=== PATIENT | female | born 1970 | race Caucasian/White ===

== ENCOUNTER 2020-01-19 10:28 | Day surgery (SDC) | payer OTHER, SELFPAY ==
[2020-01-19] VITALS (12 sets, daily range): BP systolic 137–148; BP diastolic 73–88; PULSE 74–91; RESP 16–17; TEMP 36.1–36.6; O2SAT 92–98; BMI 39.6
--- NOTE | 2020-01-19 10:39 | RAD_ITS ---
STUDY: X-RAY - ABDOMEN/PELVIS REASON FOR EXAM: Female, 49 years old. PRE OP RIGHT SIDE KIDNEY STONE TECHNIQUE: 2 AP views COMPARISON: None. FINDINGS: There is a 1.1 cm calcification projecting over the lower pole of the right kidney. There are also lucent centered calcifications within the right hemipelvis these are likely phleboliths, but a distal ureteral stone cannot be excluded. There is been a previous cholecystectomy There is a moderate amount of colonic fecal material. There is no demonstrated free abdominal air. The visualized liver, spleen and kidneys are grossly normal in size and morphology. Normal soft tissue structures. Normal visualized osseous structures. RAD/Abdomen Single View IMPRESSION: 1.1 cm calcification likely within the right kidney Possible stones in the distal right ureter though these are likely phleboliths within the pelvis No free air or acute abnormality Electronically Signed: Pramod Vegas MD at 11:06 EDT , Service support ,
[2020-01-19] MEDS: Lactated Ringers 1,000 ML 100 ML IV ×2 (11:18→14:35)
[2020-01-19 11:26] LABS: Bedside Glucose 262 mg/dL (70-110)
--- NOTE | 2020-01-19 13:29 | PCM.HP.STD ---
History of Present Illness Date of Admission: 01/19/20 Chief Complaint: Right ureteral calculi The patient is a 49 year old female who has a stone in the distal right ureter is failed to pass it on her own spontaneously we will plan to proceed with treatment of the stone with laser lithotripsy and stent placement Past Medical History Allergies morphine Adverse Reaction (Verified 01/19/20 10:38) PT UNSURE OF REACTION n/v Home Medications: Ambulatory Orders Medication Instructions Recorded Aspirin [Aspir 81] 81 mg PO DAILY 01/14/20 Atorvastatin Calcium [Lipitor] 40 mg PO DAILY 01/14/20 Cetirizine HCl [Zyrtec] 10 mg PO DAILY 01/14/20 Duloxetine HCl 60 mg PO DAILY 01/14/20 Gabapentin [Neurontin] 100 mg PO PRN PRN 01/14/20 Gabapentin [Neurontin] 400 mg PO BID 01/14/20 Glimepiride 4 mg PO DAILY 01/14/20 Hydrochlorothiazide [Hctz] 25 mg PO DAILY 01/14/20 Ibuprofen 200 mg PO PRN PRN 01/14/20 Losartan Potassium 100 mg PO DAILY 01/14/20 Metformin HCl [Metformin ER 1,000 mg PO BID 01/14/20 Osmotic] Omeprazole 20 mg PO DAILY 01/14/20 Surgical History: no surgical history Smoking Status: Never smoker Tobacco Use: Non-smoker Review of Systems Constitutional: Denies: Chills, Fever, Weight Change HEENT: Denies: Head Aches, Sinus Congestion, Sinus Drainage Cardiovascular: Denies: Chest Pain, Palpitations Respiratory: Denies: Cough, Shortness of breath at rest, Sputum production Gastrointestinal: Denies: Abdominal Pain, Nausea, Vomiting Genitourinary: Denies: Dysuria Musculoskeletal: Denies: Joint Pain, Joint Tenderness Skin: Denies: Rash, Wounds Neurological: Denies: Numbness, Tingling, Focal weakness Psychiatric: Denies: Anxiety, Depression, Homicidal Ideations, Suicidal Ideations Hematologic/ Lymphatic: Denies: Easy Bruising, Easy Bleeding VTE Information - Inpt Only VTE Present on Admission: No VTE Mechan Device Prophylaxis: SCD's - Physical Exam Vitals/I&O's: Vital Signs Temp Pulse Resp BP Pulse Ox 97.9 F 91 17 139/88 H 96 01/19/20 10:58 01/19/20 10:58 01/19/20 10:58 01/19/20 10:58 01/19/20 10:58 Oxygen Delivery Method Room Air Weight: 118.1 kg Body Mass Index (BMI) 39.6 General: Alert, Oriented x3, Cooperative HEENT: Atraumatic, PERRLA, EOMI, Normocephalic Neck: Supple, No JVD, Negative Carotid Bruits Lungs: Clear to auscultation, Normal air movement Cardiovascular: Regular rate, No murmurs Abdomen: Bowel Sounds Present, Soft, Non Tender Extremities: No edema, Capillary Refill Less than 3 Seconds Skin: No rashes, No breakdown Musculoskeletal: No Tenderness to Palpation of Joints or Extremities Neurological: Cranial nerves II-XII grossly intact Psych/Mental Status: Normal Affect, Appropriate Laboratory Results 01/19/20 11:00: POC Glucose 262 H Current Medications Lactated Ringer's () 1,000 mls @ 100 mls/hr IV .Q10H JACKY Last Admin: 01/19/20 11:18 Dose: 100 mls/hr Documented by: Assessment/Plan Plan to proceed with right ureteroscopy balloon dilation of the ureter
--- NOTE | 2020-01-19 13:34 | PCM.DC.URO ---
Discharge Diet: No Restrictions, Light diet - advance as tolerated Discharge Activity: Return to Normal Activity, May Not Drive - for 2 days. Additional Activity Instructions:: Please be aware that pain medications may cause nausea. You should typically eat light foods as you take your pain medication. Pain medication may cause constipation, if this is a problem for you, please discuss with your doctor. Allergies/Adverse Reactions: Allergies morphine Adverse Reaction (Verified 01/19/20 10:38) PT UNSURE OF REACTION n/v Medications to take at Discharge Aspirin [Aspir 81] 81 mg PO DAILY 01/14/20 Atorvastatin Calcium [Lipitor] 40 mg PO DAILY 01/14/20 Cetirizine HCl [Zyrtec] 10 mg PO DAILY 01/14/20 Duloxetine HCl 60 mg PO DAILY 01/14/20 Gabapentin [Neurontin] 100 mg PO PRN PRN 01/14/20 Gabapentin [Neurontin] 400 mg PO BID 01/14/20 Glimepiride 4 mg PO DAILY 01/14/20 Hydrochlorothiazide [Hctz] 25 mg PO DAILY 01/14/20 Ibuprofen 200 mg PO PRN PRN 01/14/20 Losartan Potassium 100 mg PO DAILY 01/14/20 Metformin HCl [Metformin ER Osmotic] 1,000 mg PO BID 01/14/20 Omeprazole 20 mg PO DAILY 01/14/20 Ciprofloxacin [Cipro] 500 mg PO BID #6 tab 01/19/20 Hydrocodone Bitart/Apap 5-325 [[place] 5MG-325MG] 1 tablet PO Q4H PRN PRN 5 Days #14 tablet 01/19/20 The following prescriptions were given: Ciprofloxacin [Cipro] 500 mg PO BID #6 tab Transmission Status: Pending to [facility] Hydrocodone Bitart/Apap 5-325 [[place] 5MG-325MG] 1 tablet PO Q4H PRN PRN 5 Days #14 tablet PRN Reason: Pain Transmission Status: Sent to [facility] Primary Care Physician: Coreen Sanabria MD [Primary Care Provider] - Test Results: Test results from this visit will be discussed in further detail at your follow-up appointment, if applicable. Please Follow Up With: Austen Crowley MD When: please call to make an appointment.
[2020-01-19] MEDS: Lubricating Jelly 60 GM Tube 30 GM TOPICAL (13:37)
[2020-01-19] MEDS: Cefazolin 2 GM in 0.9% Normal Saline 100 ML IV (14:00)
--- NOTE | 2020-01-19 14:27 | PCM.OPRPT ---
Report of Operation Date of Procedure: 01/19/20 Pre-Operative Diagnosis: Right renal internal calculi Post-Operative Diagnosis: Same Surgery/Procedure Performed:: Cystoscopy right retrograde pyelogram and interpretation of fluoroscopic images, right ureteroscopy laser lithotripsy of stone and right stent placement Description of Surgical Findings:: 49-year-old female with a stone in the distal right ureter plan to take her to surgery today for ureteroscopy laser lithotripsy and stent placement. Patient was taken back to the operating room after smooth induction of general anesthesia she was placed in dorsolithotomy position, went into the bladder with a 21 [place] rigid cystourethroscope identified the trigone the bladder the ureteral orifice, we performed a retrograde pyelogram on the right side contrast went up the ureter I did not see a stone along the course of the ureter. I then put a wire up the ureter and went up the ureter with a semirigid ureteroscope went as far as possible could not see a stone. In reviewing her imaging I knew she had a stone and perhaps it had migrated back up to the kidney so I decided to perform flexible ureteroscopy. I then went in with a flexible ureteroscope I cannulated the distal right ureteral orifice went all the way up to the kidney inspected the upper pole midpole and then found a stone in the mid lower pole calyx I move the stone into the upper pole calyx I then used a 270 ?m laser fiber and laser the stone a little tiny pieces once a stone was completely lasered then I backed the my way down the ureter put a wire through the ureteroscope and then over the wire advanced a stent left the stent in place. Drain the bladder. On retrograde pyelograms taking contrast going up to the kidney no stone was seen along the course of the ureter. Patient was then taken back to the PACU in good condition and I will see her next week to remove the stent. Type of Anesthesia:: General Drains: stent right side - Admit VTE Documentation VTE Present on Admission: No VTE Mechan Device Prophylaxis: SCD's
[2020-01-19] MEDS: Ketorolac 15 MG/ML Vial IV (14:35)
[2020-01-19] MEDS: Metoclopramide 10 MG/2 ML Vial IV (15:37)
== END 2020-01-19 17:03 | disposition home or self-care (01) ==
LOC: SDC 10:29 → AC 10:32
PROVIDERS: Anesthesiology; PCP Student in an Organized Health Care Education/Training Program; Referring Provider Urology; Visit Provider Urology
PROC: 0TJ98ZZ Inspection of Ureter, Via Natural or Artificial Opening Endoscopic (ICD-10-PCS; CPT 52352; principal; 2020-01-19 12:20)
DX: N20.0 Calculus of kidney (principal); K21.9 Gastro-esophageal reflux disease without esophagitis; E78.00 Pure hypercholesterolemia, unspecified; E11.9 Type 2 diabetes mellitus without complications; I10 Essential (primary) hypertension; Z11.59 Encounter for screening for other viral diseases; Z79.82 Long term (current) use of aspirin; Z79.84 Long term (current) use of oral hypoglycemic drugs; Z79.899 Other long term (current) drug therapy
CPT/HCPCS: 00918; 52356; 74018; 76000; 82962; 87635; G2023; J7120; C1769; C2617; J2405; U0003

== ENCOUNTER 2025-02-27 17:36 | Emergency (ER) | payer MEDICAID, SELFPAY ==
[2025-02-27 17:37] VITALS: BP 137/88; PULSE 113; RESP 16; TEMP 36.8; O2SAT 98; BMI 37.1
--- NOTE | 2025-02-27 18:12 | CT_ITS ---
PROCEDURE: ABDOMEN/PELVIS W IV CONT ONLY 02/27/2025 REASON FOR EXAM: ABDOMINAL PA, VOMITING, DIARRHEA TECHNIQUE: ABDOMEN/PELVIS W IV CONT ONLY Coronal and Sagittal reconstruction series were provided. CONTRAST: 100 mL of Isovue 370 One or more dose reduction techniques were used (e.g., Automated exposure control, adjustment of the mA and/or kV according to patient size, use of iterative reconstruction technique. RADIATION DOSE SUMMARY: DLP: 1341 mGycm COMPARISON: None FINDINGS: Limited sections of the lung bases demonstrate no focal pulmonary mass or consolidations. The liver, spleen, pancreas, and both adrenal glands demonstrate no acute findings. The gallbladder is surgically removed The stomach is unremarkable. The small bowel loops are not dilated. The appendix is not clearly identified, although there are no secondary signs of appendicitis. No colonic obstruction. There is no free air or significant free fluid. The kidneys are unremarkable. The urinary bladder is not distended. The pelvic structures are intact. There is no solid pelvic mass. No significant lymphadenopathy. The aorta and IVC demonstrate no acute findings. Minimal atherosclerosis of the abdominal vasculature. Visualized osseous structures demonstrate no acute abnormality. Small right inguinal fat containing hernia. CT/Abdomen/Pelvis W IV Cont ONLY IMPRESSION: No acute intra-abdominal process. Reading Location: [id number]
[2025-02-27 18:14] LABS: Mucous, Urine 0 SEEN /hpf (<or=2+)
--- NOTE | 2025-02-27 18:17 | EDS_ITS ---
<Statement entered by Juliano Adkins DO - 02/27/25 20:51> Patient was seen and examined with physician physician assistant psychiatry Leisa All components of the history and physical confirmed and agreed. History of present illness and physical exam: Patient is a 54-year-old female with past medical hypertension, diabetes, recurrent kidney stones who presents to the emergency department the chief complaint of abdominal pain and back pain she states that this started last night. States that around 2 AM she developed nausea vomiting pain and diarrhea. States that this happened about a week ago as well. She states that given the symptoms did not improve throughout the day she came here for further evaluation management. States that about 3 weeks ago she saw her primary care physician and was placed on a PPI and sucralfate. She states that she was taking Protonix but not the sucralfate because it did not seem to be doing anything. She states that she has had her gallbladder out her appendix and a partial hysterectomy with 3 C-sections. States that she has had a colonoscopy before that was normal. Review of systems: Agree with above Physical exam: Agree with above MDM Patient is a 54-year-old female who presented to the emergency department the chief complaint of abdominal pain. On the differential diagnosis includes but not limited to viral gastroenteritis, bowel obstruction, urolithiasis, UTI, pyelonephritis. Once the workup is obtained reviewed she will be reevaluated. Patient CBC was reviewed showed a leukocytosis of 14,000, hemoglobin 14.5, platelet count 336. Patient odium is 130, potassium normal 3.5, creatinine normal at 0.89. Patient AST and ALT were 20 and 19 respectively total bilirubin elevated 2.03. Patient lipase normal at 31, urinalysis reviewed showed no evidence of infection. Patient CT on pelvis with IV contrast reviewed showed no acute intra-abdominal processes. Patient EKG reviewed and showed sinus rhythm. Discussed results with the patient she would like to go home at this point in time. She was advised to return with worsening symptoms or other concerns. She will be given prescriptions for Zofran and Bentyl. All question concerns answered she was discharged home in stable condition. She is agreeable this plan. Final impression: Abdominal pain Nausea and vomiting Diarrhea Disposition: Patient will be discharged home in stable condition Supervising attending attestation: Juliano Adkins D.O. HPI History of Present Illness Chief Complaint: Nausea/Vomiting/Diarrhea Narrative Narrative: 54-year-old female with past medical history of HTN, DM2, recurrent kidney stones presents with right upper quadrant and right flank pain that started last night. Around 2 AM she developed nausea and vomiting, pain, and diarrhea. She vomited about 4 times and is having frequent diarrhea throughout the day. No melena or hematochezia. She denies fever, chills, or urinary symptoms. She had similar symptoms 3 weeks ago and saw her primary care doctor and was put on a PPI and Sucre fate. She has been taking the Protonix but not the sucralfate because it did not seem to be doing anything. She felt better for 3 weeks until last night. She has a history of cholecystectomy, appendectomy, partial hysterectomy, and x 3. She reports an unremarkable colonoscopy within the last 5 years. [facility] Home Medications ?Medication ?Instructions ?Recorded ?Last Taken ?Type aspirin 81 mg tablet,delayed 81 mg PO DAILY 01/14/20 0 01/09/20 History release atorvastatin 40 mg tablet 40 mg PO DAILY 01/14/20 Unkn own History cetirizine 10 mg tablet 10 mg PO DAILY allergies Unknown History duloxetine 60 mg capsule,delayed 60 mg PO DAILY Unknown History release hydrochlorothiazide 25 mg tablet 25 mg PO DAILY Unknown History ibuprofen 200 mg capsule 200 mg PO PRN PRN Pain Or Fe caleb 01/14/20 Unknown History losartan 100 mg tablet 100 mg PO DAILY bp 01/14/20 Unknown History metformin 1,000 mg tablet,extended 1,000 mg PO BID Unknown History release 24hr (osmotic) omeprazole 20 mg capsule,delayed 20 mg PO DAILY gerd 0 01/14/20 01/19/20 08:00 History release dulaglutide 1.5 mg/0.5 mL mg subcut 10/01/23 Unknown H istory subcutaneous pen injector (Trulicity) insulin glargine 100 unit/mL (3 unit subcut 10/01/23 U nknown History mL) subcutaneous pen (Lantus Solostar U-100 Insulin) insulin lispro 100 unit/mL subcut 10/01/23 Unknown His tory subcutaneous pen tizanidine 4 mg tablet mg PO Q12H PRN 10/01/23 Unkn own History tramadol 50 mg tablet 50 mg PO DAILY PRN pain 0301/18 Unknown History amlodipine 10 mg tablet 10 mg PO DAILY 02/27/25 Unkn own History dicyclomine 20 mg tablet 20 mg PO BID PRN abdominal p ain 02/27/25 Unknown Rx #14 tabs gabapentin 300 mg capsule 300 mg PO BID 02/27/25 Unkno wn History ondansetron 4 mg disintegrating 4 mg PO Q8H PRN PRN Na usea #10 tabs 02/27/25 Unknown Rx tablet Allergy/AdvReac Type Severity Reaction Status Date / Time morphine AdvReac PT UNSURE Verified 02/27/25 17:41 OF REACTION Family History (Updated 10/01/23 @ 13:36 by Marianela Rashid MA) Grandmother Heart disease Diabetes RA (rheumatoid arthritis) Mother Heart disease Diabetes CVA (cerebral vascular accident) Myocardial infarction Grandfather Heart disease Diabetes Surgical History (Updated 10/01/23 @ 13:34 by Marianela Rashid MA) History of partial hysterectomy Hx of cholecystectomy Hx of appendectomy Hx of section Social History (Updated 10/01/23 @ 13:35 by Marianela Rashid MA) household members: significant other Smoking Status: Never smoker alcohol intake: never ROS ROS ED ROS Narrative Constitutional: Negative for fever, chills, malaise. CVS: Negative for chest pain. Respiratory: Negative for shortness of breath, cough. GI: Positive for abdominal pain, nausea, vomiting, diarrhea. EXAM Physical Exam Narrative Exam Narrative: CONST: Patient sitting in no acute distress. EYES: Normal inspection. NECK: Normal inspection. RESP: No respiratory distress, CTAB. CVS: Regular rate and rhythm, no murmur, no gallop. ABD: Soft with epigastric tenderness, no guarding or rebound, nondistended SKIN: Color normal, no rash, warm, dry, intact. EXTREMITIES: Normal appearance, no pedal edema. NEURO: Alert and answering questions appropriately. PSYCH: Normal affect. Const Vital Signs: 02/27/25 17:37 02/27/25 18:40 02/27/25 20:24 Temperature 98.2 F 98.5 F 98.2 F Temperature Source Oral Oral Pulse Rate 113 H 93 68 Respiratory Rate 16 16 18 Blood Pressure 137/88 H 119/66 139/79 H Blood Pressure Mean 104 83 99 Pulse Ox 98 99 97 Oxygen Delivery Method Room Air Room Air MDM MDM MDM Narrative Medical decision making narrative: Differential includes but not limited to viral gastroenteritis, GERD, PUD, pancreatitis, diverticulitis 54-year-old female was evaluated for nausea, vomiting, diarrhea, epigastric and right upper quadrant pain that started last night. She had a similar episode 3 weeks ago. She appears well and nontoxic. She is tachycardic at 113 with otherwise normal vital signs. Normal cardiopulmonary exam. Abdomen soft with epigastric tenderness without peritoneal signs. Labs show WBC of 14.3, normal electrolytes and renal function, glucose 144 with normal CO2 and gap. Total bilirubin is slightly up at 2.03 and alk phos is 133 but the rest of her LFTs and lipase are normal. She status postcholecystectomy so I think this is incidental and she just be rechecked outpatient. UA is negative. CT shows no acute intra-abdominal process. She feels improvement after fluids, Toradol, and Zofran and heart rate has improved. Not sure what the etiology of her pain is. I prescribed Zofran and Bentyl as needed and recommend she follow-up with her primary care doctor. Return precautions discussed. She was discharged in stable condition. History & Record Review Discussion w/independent historian: Patient Additional record(s) reviewed:: Prior ED visit and Prior labs Lab Data Attestation: I reviewed the patient's lab results. Labs: Laboratory Results - last 24 hr 02/27/25 18:07 WBC 14.3 H RBC 5.07 Hgb 14.5 Hct 42.5 MCV 83.8 MCH 28.6 MCHC 34.1 RDW Std Deviation 43.3 RDW Coeff of Radha 14.3 Plt Count 336 MPV 9.7 Immature Gran % (Auto) 0.600 Neut % (Auto) 71.7 H Lymph % (Auto) 18.7 L [place] % (Auto) 4.9 Eos % (Auto) 3.6 Baso % (Auto) 0.5 Absolute Neuts (auto) 10.2 H Absolute Lymphs (auto) 2.66 Nucleated RBC % 0 Sodium 138 Potassium 3.5 Chloride 102 Carbon Dioxide 23.1 Anion Gap 13 BUN 18 Creatinine 0.89 Estim Creat Clear Calc 89.14 Est GFR (MDRD) Non-Af 76 BUN/Creatinine Ratio 20.7 H Glucose 144 H Calcium 9.2 Total Bilirubin 2.03 H AST 20 ALT 19 Alkaline Phosphatase 133 H Total Protein 7.2 Albumin 4.3 Globulin 2.9 Albumin/Globulin Ratio 1.5 Lipase 31 Urine Color Yellow Urine Clarity Clear Urine pH 6.0 Ur Specific [place] 1.015 Urine Protein 15 H Urine Glucose (UA) Normal Urine Ketones Negative Urine Occult Blood Negative Urine Nitrite Negative Urine Bilirubin Negative Urine Urobilinogen Normal Ur Leukocyte Esterase 25 H Urine RBC 0-5 SEEN Urine WBC 0-5 SEEN Ur Squamous Epith Cells 0-5 SEEN Urine Bacteria 0 SEEN Urine Mucus 0 SEEN Radiography Diagnostic Testing: Clinical Impression(s) from Imaging Studies Abdomen/Pelvis CT 02/27/25 18:12 IMPRESSION: No acute intra-abdominal process. Reading Location: [facility] Discharge Plan Triage Chief Complaint: Nausea/Vomiting/Diarrhea ED Midlevel Provider: Leisa Smalls ED Provider: Juliano Adkins Dx/Rx/DC Orders Clinical Impression: Abdominal pain, Nausea and vomiting, Diarrhea Instructions: Abdominal Pain Prescriptions: New ondansetron 4 mg tablet,disintegrating 4 mg PO Q8H PRN PRN (Reason: Nausea) Qty: 10 0RF dicyclomine 20 mg tablet 20 mg PO BID PRN (Reason: abdominal pain) Qty: 14 0RF No Action Trulicity 1.5 mg/0.5 mL pen injector subcut Patient Comments: INJECT CONTENTS OF ONE PEN SUBCUTANEOUSLY ONCE EVERY WEEK insulin glargine [Lantus Solostar U-100 Insulin] 100 unit/mL (3 mL) insulin pen subcut Patient Comments: INJECT SUBCUTANEOUSLY 32-34 UNITS DAILY insulin lispro 100 unit/mL insulin pen subcut Patient Comments: INJECT FIVE UNITS SUBCUTANEOUSLY 30 MINUTES BEFORE MEALs THREE TIMES DAILY plus sliding scale UP TO 25 units DAILY tramadol 50 mg tablet 50 mg PO DAILY PRN (Reason: pain) Patient Comments: TAKE 1 OR 2 TABLETS BY MOUTH EVERY 6 HOURS NEEDED FOR PAIN tizanidine 4 mg tablet PO Q12H PRN Patient Comments: TAKE ONE TABLET BY MOUTH EVERY TWELVE HOURS NEEDED FOR PAIN DO NOT FILL UNTIL 04/03/2023 atorvastatin 40 MG tablet 40 mg PO DAILY cetirizine 10 MG tablet 10 mg PO DAILY ibuprofen 200 MG capsule 200 mg PO PRN PRN (Reason: Pain Or Fever) aspirin 81 MG tablet,delayed release (DR/EC) 81 mg PO DAILY Patient Comments: stopped for surgery omeprazole 20 MG capsule,delayed release(DR/EC) 20 mg PO DAILY hydrochlorothiazide 25 MG tablet 25 mg PO DAILY losartan 100 MG tablet 100 mg PO DAILY metformin 1,000 MG tablet extended release 24hr 1,000 mg PO BID duloxetine 60 MG capsule,delayed release(DR/EC) 60 mg PO DAILY amlodipine 10 mg tablet 10 mg PO DAILY gabapentin 300 mg capsule 300 mg PO BID Primary Care Provider: Coreen Sanabria Referrals: Coreen Sanabria MD [Primary Care Provider] - Activity Restrictions/Additional Instructions: Overall your blood work and CT scan look normal and I am not sure what is causing your symptoms. I prescribed medication to take as needed for nausea and pain and you can also try [id number] Tylenol every 6 hours as needed. Follow-up with your primary care doctor. Print Language: Ecuadorean Disposition Disposition: Home, Self Care
[2025-02-27 18:19] LABS: Hematocrit 42.5 % (37-47); Hemoglobin 14.5 g/dL (12.0-15.0); Immature Granulocytes Count 0.080 X10^3/uL (0.0-0.0); Mean Corp Hgb Conc 34.1 g/dL (32-36); Mean Corpuscular Volume 83.8 fL (81-99); Mean Platelet Vol. 9.7 fl (6.2-12.0); NRBC Flagged by Analyzer 0 % (0-5); Platelet Count 336 K/mm3 (150-450); RBC Distribution Width CV 14.3 % (11.6-14.6); RBC Distribution Width SD 43.3 fl (35.1-43.9); Red Blood Count 5.07 M/mm3 (4.2-5.4); White Blood Count 14.3 K/mm3 (4.4-11.0)
--- OUTSIDE RECORDS SUMMARY | 2025-02-27 18:21 | XMS RPT_ITS | CCD ---
Author Organization [facility] Care Team Providers Care Fashion Journalist Name Role Phone LEXA ALBRIGHT Attending Unavailable KALISETTI, GEETA Primary Care Unavailable LEXA ALBRIGHT Referring Unavailable FALLS, JORGE CAMPOS Referring Unavailabl e KALISETTI, GEETA Primary Care Unavailable FALLS, JORGE CAMPOS Attending Unavailabl e FALLS, JORGE CAMPOS Referring Unavailabl e FALLS, JORGEFarhat CAMPOS Admitting Unavailabl e KALISETTI, GEETA Primary Care Unavailable FALLS, JORGE CAMPOS Attending Unavailabl e KALISETTI, GEETA Primary Care Unavailable FALLS, JORGEFarhat CAMPOS Referring Unavailabl e KALISETTI, GEETA Primary Care Unavailable FALLS, JORGE ANDRES Referring Unavailabl e FALLS, JORGE ANDRES Attending Unavailabl e KALISETTI, GEETA Primary Care Unavailable FALLS, JORGE ANDRES Referring Unavailabl e FALLS, JORGEFarhat CAMPOS Attending Unavailabl e KalGeeta arenas MD Primary Care Provider [phone] FALLS, JORGEFarhat CAMPOS Attending Unavailabl e KALISETTI, GEETA Primary Care Unavailable KALISETTI, GEETA Admitting Unavailable FALLS, JORGE ANDRES Attending Unavailabl e KALISETTI, GEETA Referring Unavailable KALISETTI, GEETA Primary Care Unavailable FALLS, JORGE ANDRES Attending Unavailabl e KALISETTI, GEETA Primary Care Unavailable FALLS, JORGE ANDRES Attending Unavailabl e KALISETTI, GEETA Primary Care Unavailable Kalisetti, Geeta Referring Unavailable Kalisetti, Geeta Primary Care Unavailable Curt Espana Attending Unavailable Geeta Sanabria MD Primary Care Provider GEETA SANABRIA MD Attending Unavailable GEETA SANABRIA MD Admitting Unavailable GEETA SANABRIA MD Primary Care Unavailable GEETA SANABRIA MD Consulting Unavailable PROVIDER, UNKNOWN Consulting Unavailable PROVIDER, UNKNOWN Consulting Unavailable GEETA SANABRIA MD Consulting Unavailable GEETA SANABRIA MD Attending Unavailable GEETA SANABRIA MD Primary Care Unavailable GEETA SANABRIA MD Admitting Unavailable PROVIDER, UNKNOWN Consulting Unavailable PROVIDER, UNKNOWN Consulting Unavailable GEETA SANABRIA MD Consulting Unavailable GEETA SANABRIA MD Attending Unavailable GEETA SANABRIA MD Primary Care Unavailable GEETA SANABRIA MD Admitting Unavailable PROVIDER, UNKNOWN Consulting Unavailable PROVIDER, UNKNOWN Consulting Unavailable GEETA SANABRIA MD Admitting Unavailable GEETA SANABRIA MD Primary Care Unavailable GEETA SANABRIA MD Consulting Unavailable GEETA SANABRIA MD Attending Unavailable PROVIDER, UNKNOWN Consulting Unavailable PROVIDER, UNKNOWN Consulting Unavailable SHAI ERICKSON Attending Unavailable SHAI ERICKSON Admitting Unavailable GEETA SANABRIA MD Consulting Unavailable SHAI ERICKSON Primary Care Unavailable PROVIDER, UNKNOWN Consulting Unavailable PROVIDER, UNKNOWN Consulting Unavailable HELEN SHAI Admitting Unavailable HELEN SHAI Primary Care Unavailable GEETA SANABRIA MD Consulting Unavailable SHAI ERICKSON Attending Unavailable PROVIDER, UNKNOWN Consulting Unavailable PROVIDER, UNKNOWN Consulting Unavailable HELEN, SHAI Admitting Unavailable GEETA SANABRIA MD Consulting Unavailable HELEN SHAI Primary Care Unavailable HELEN SHAI Attending Unavailable PROVIDER, UNKNOWN Consulting Unavailable PROVIDER, UNKNOWN Consulting Unavailable HELEN SHAI Primary Care Unavailable SHAI ERICKSON Attending Unavailable ERICKSON, SHAI Admitting Unavailable GEETA SANABRIA MD Consulting Unavailable PROVIDER, UNKNOWN Consulting Unavailable PROVIDER, UNKNOWN Consulting Unavailable GEETA SANABRIA MD Attending Unavailable GEETA SANABRIA MD Admitting Unavailable GEETA SANABRIA MD Primary Care Unavailable GEETA SANABRIA MD Consulting Unavailable PROVIDER, UNKNOWN Consulting Unavailable PROVIDER, UNKNOWN Consulting Unavailable GEETA SANABRIA MD Attending Unavailable GEETA SANABRIA MD Primary Care Unavailable GEETA SANABRIA MD Admitting Unavailable GEETA SANABRIA MD Consulting Unavailable PROVIDER, UNKNOWN Consulting Unavailable PROVIDER, UNKNOWN Consulting Unavailable MARKO BAUMANN Attending Unavailable GEETA SANABRIA Primary Care Unavailable MERNA, CHARLIE Referring Unavailable GEETA SANABRIA Primary Care Unavailable GEETA SANABRIA Primary Care Unavailable CHARLIE BAUMAN Referring Unavailable Allergies Allergy Classification Reported Allergen(s) Allergy Type Date of Onset Reaction(s) Facility (9 sources) Morphine; Translations: [MORPHINE] Drug Allergy 6 Nausea and vomiting, GI Upset [facility] Repository (1 source) Angiotensin Converting Enzyme (Richard) Inhibitors Drug allergy (disorder) [facility] Repository Medications Current Medications Medication Drug Class(es) Dates Sig (Normalized) Sig (Original) amLODIPine 10 mg oral tablet (4 sources) Dihydropyridine Calcium Channel Abbie Start: 06-17-20 14 take 1 tablet by mouth once daily amLODIPine (NORVASC) 10 mg tablet Take 1 tablet by mouth once daily. 0 06/17/2014 Active aspirin 81 mg delayed release oral tablet (4 sources) Platelet Aggregation Inhibitor, Nonsteroidal Anti-inflammatory Drug take 1 tablet by mouth once daily aspirin, enteric coated (ASPIRIN, ENTERIC COATED) 81 mg EC tablet Take 81 mg by mouth once daily. Active atorvastatin 40 mg oral tablet (4 sources) HMG-CoA Reductase Inhibitor Start: 08-15-19 24 take 1 tablet by mouth once daily atorvastatin (LIPITOR) 40 mg tablet Take 40 mg by mouth once daily. 08/15/2023 Active cetirizine hydrochloride 5 mg chewable tablet (4 sources) Histamine-1 Receptor Antagonist take 1 tablet by mouth once daily cetirizine HCl (ZYRTEC) 5 mg chewable tablet Take 5 mg by mouth once daily. Active cyclobenzaprine hydrochloride 10 mg oral tablet (4 sources) Muscle Relaxant Start: 06-07-20 24 take 1 tablet by mouth every twelve hours as needed cyclobenzaprine (FLEXERIL) 10 mg tablet Take 10 mg by mouth two times a day as needed. 06/07/2024 Active DULoxetine 60 mg delayed release oral capsule (4 sources) Serotonin and Norepinephrine Reuptake Inhibitor Start: 08-15-19 24 take 1 capsule by mouth once daily DULoxetine DR (CYMBALTA) 60 mg capsule Take 60 mg by mouth once daily. 08/15/2023 Active gabapentin 600 mg oral tablet (3 sources) Anti-epileptic Agent take 1 tablet by mouth three times daily gabapentin (NEURONTIN) 600 mg tablet Take 600 mg by mouth three times daily. Active hydroCHLOROthiazide 25 mg oral tablet (4 sources) Thiazide Diuretic Start: 08-15-19 24 take 1 tablet by mouth once daily hydroCHLOROthiazide 25 mg tablet Take 25 mg by mouth once daily. 08/15/2023 Active insulin glargine 100 unt/ml injectable solution (1 source) Insulin Analog insulin glargine (Lantus U-100 Insulin) 100 unit/mL injection Inject under the skin . Active insulin glargine,hum.rec.anlog (LANTUS SUBCUTANEOUS) (3 sources) inject 40 [IU] by subcutaneous injection once daily at bedtime insulin glargine,hum.rec.anlog (LANTUS SUBCUTANEOUS) Inject 40 Units subcutaneously daily at bedtime. Active insulin lispro 100 unt/ml injectable solution (3 sources) Insulin Analog inject 5 [IU] by subcutaneous injection three times daily before mealtime insulin lispro (HUMALOG) 100 unit/mL injection Inject 5 Units subcutaneously three times a day before meals. And sliding scale Active 3 ml liraglutide 6 mg/ml pen injector (3 sources) GLP-1 Receptor Agonist inject 1.2 mg by subcutaneous injection once daily liraglutide (VICTOZA) 0.6 mg/ 0.1 ml subcutaneous pen injector Inject 1.2 mg subcutaneously once daily. Active losartan potassium 100 mg oral tablet (4 sources) Angiotensin 2 Receptor Abbie Start: 08-15-19 24 take 1 tablet by mouth once daily losartan (COZAAR) 100 mg tablet Take 100 mg by mouth once daily. 08/15/2023 Active metFORMIN hydrochloride 1000 mg oral tablet (4 sources) Biguanide Start: 06-17-20 14 take 1 tablet by mouth once daily at breakfast metFORMIN (GLUCOPHAGE) 1,000 mg tablet Take 1 tablet by mouth daily with breakfast. 06/17/2014 Active Start: 06-17-2014 take 1 tablet by lola twice daily at mealtime metFORMIN (GLUCOPHAGE) 1000 MG tablet Take 1 (one) tablet (1,000 mg total) by mouth 2 (two) times a day with meals . 06/17/2014 Active omeprazole 20 mg delayed release oral capsule (1 source) Proton Pump Inhibitor take 1 capsule by mouth once daily omeprazole (PRILOSEC) 20 MG capsule Take 1 (one) capsule (20 mg total) by mouth daily . Active pantoprazole 40 mg delayed release oral tablet (3 sources) Proton Pump Inhibitor take 1 tablet by mouth once daily pantoprazole DR (PROTONIX) 40 mg tablet Take 40 mg by mouth once daily. Active sucralfate 1000 mg oral tablet (3 sources) Aluminum Complex take 1 tablet by mouth four times daily sucralfate (CARAFATE) 1 gram tablet Take 1 g by mouth four times daily. Active traMADol hydrochloride 50 mg oral tablet (4 sources) Opioid Agonist take 1 tablet by mouth every four hours as needed traMADol (ULTRAM) 50 mg tablet Take 50 mg by mouth every 4 hours as needed. Active 24 hr venlafaxine 37.5 mg extended release oral capsule (3 sources) Serotonin and Norepinephrine Reuptake Inhibitor Start: 06-17-20 take 1 capsule by mouth once daily venlafaxine XR (EFFEXOR XR) 37.5 mg 24 hr capsule Take 1 capsule by mouth once daily. 0 06/17/2014 Active Completed/Discontinued Medications Medication Drug Class(es) Dates Sig (Normalized) Sig (Original) acetaminophen 325 mg / HYDROcodone bitartrate 5 mg oral tablet (1 source) Opioid Agonist Start: 11-19-2023 End: 06-08-2024 take 1 tablet by mouth once daily as needed for pain HYDROcodone-acetami nophen (NORCO) 5-325 mg per tablet TAKE ONE TABLET BY MOUTH ONCE DAILY NEEDED FOR SEVERE PAIN 11/14/2023 11/19/2023 06/08/2024 Discontinued Problems Active Problems Problem Classification Problem Date Documented Da te Episodic/Chronic Deficiency and other anemia (3 sources) Other hemoglobinopathies; Translations: [Other hemoglobinopathies] Onset: 04-19-2024 Chronic Diabetes mellitus without complication (3 sources) Type 2 diabetes mellitus without complications; Translations: [Type 2 diabetes mellitus without complications] Onset: 08-10-2024 Chronic Other connective tissue disease (2 sources) Triggering of digit; Translations: [Trigger finger, right middle finger] 02-10-2025 Episodic Other connective tissue disease (2 sources) Fibromyalgia; Translations: [Fibromyalgia] 02-10-2025 Episodic Other connective tissue disease (1 source) Fibromyalgia; Translations: [Fibromyalgia] Onset: 02-10-2025 Episodic Other connective tissue disease (1 source) Trigger finger, right middle finger; Translations: [Trigger middle finger of right hand] Onset: 02-10-2025 Episodic Other non-traumatic joint disorders (5 sources) Pain in unspecified joint; Translations: [Pain in unspecified joint] Onset: 02-20-2024 Episodic Other non-traumatic joint disorders (5 sources) Multiple joint pain; Translations: [Pain in unspecified joint] 06-08-2024 Episodic Past or Other Problems Problem Classification Problem Date Documented Date Episodic/Chronic Calculus of urinary tract (3 sources) Recurrent kidney stone; Translations: [Calculus of kidney] Onset: 07-01-2016 07-01-2016 Episodic Genitourinary symptoms and ill-defined conditions (1 source) Unspecified symptoms and signs involving the genitourinary system; Translations: [Unspecified symptoms and signs involving the genitourinary system] Onset: 08-17-2024 Episodic Results Test Name Value Interpretation Reference Range Facility 3D MAMM BILAT SCREENon 02-15 3D MAMM BILAT SCREEN [place] [address] Patient: KAUSHIK RODRÍGUEZ Phone#: : 1970 Age: 54 Gender: F Pt. Type: Out Account: [id number] Location: [facility] Ordering: GEETA SANABRIA Exam Date: 02/15/2025/9:07 Family Phys: Charge Code: 460746 Physician: Citrus Order #: [id number] Dose#: PROCEDURE: BILATERAL SCREENING BREAST TOMOSYNTHESIS MAMMOGRAM WITH CAD COMPARISON: [facility], 3D BILAT SCREEN, 03/28/2021, 9:11. [facility], 3D BILAT SCREEN, 03/11/2023, 15:03. INDICATIONS: Screening. BREAST COMPOSITION: There are scattered areas of fibroglandular density FINDINGS: DIAGNOSTIC CATEGORY 1--NEGATIVE: RIGHT BREAST: No significant suspicious finding. No significant change has occurred. LEFT BREAST: No significant suspicious finding. No significant change has occurred. RECOMMENDATIONS: ROUTINE MAMMOGRAM AND CLINICAL EVALUATION IN 12 MONTHS. PLEASE NOTE: A NORMAL MAMMOGRAM DOES NOT EXCLUDE THE POSSIBILITY OF BREAST CANCER. A CLINICALLY SUSPICIOUS PALPABLE LUMP SHOULD BE BIOPSIED. THIS FACILITY UTILIZES A REMINDER SYSTEM TO ENSURE THAT ALL PATIENTS RECEIVE REMINDER LETTERS FOR APPOINTMENTS. THIS INCLUDES REMINDERS FOR ROUTINE MAMMOGRAMS, DIAGNOSITC MAMMOGRAMS, OR OTHER BREAST IMAGING INTERVENTIONS WHEN APPROPRIATE. THIS PATIENT WILL BE PLACED IN THE APPROPRIATE REMINDER SYSTEM. Dictated by: Lisseth Rodriguez MD on 02/15/2025 at 17:20 Approved by: Lisseth Rodriguez MD on 02/15/2025 at 17:31 Normal [facility] C-REACTIVE PROTEINon 02-10- 025 CRP [Mass/Vol] 0.8 mg/dL NINF - 0.9 mg/dL [facility] CNOVon 02-10-2025 CNOV Office Visit (RHWSTR ) BRUCE,SHAY ([id number]) 1970 F Date Time Provider Department 02/10/25 9:00 AM CHARLIE BAUMAN WSTR During your visit today, we recorded the following information about you: Pulse Blood pressure Weight Height 93/minute 131/84 108.7 kg 1.702 m Charlie Bauman PA-C 02/10/2025 11:05 AM Signed Rheumatology CONSULTATION Date of Service: 02/10/2025 Patient:Kaushik Rodríguez Medical Record: [id number] Primary Care Physician: Nai Worthington MD Last Rheumatology visit: None at [facility] Referring Provider: No referring provider defined for this encounter. Recording using Twinklr software for draft documentation of the visit was discussed with the patient/authorized uniforms sales representative; all questions welcomed and answered. Patient/authorized uniforms sales representative agreed to proceed History of Present Illness BRIEF RHEUM History: - Seen by Dr. Jorge Penaloza at [facility] in [place] 02/20/24 for polyarthralgia, history of psoriasis. - in 2023 was having multiple joint pain improving with activity and AM stiffness. Inflammatory arthritis is on the differential. - Testing included joint aspiration x 2 with non-inflammatory fluid - Lab testing 02/20/24 showed RF negative, CCP negative, DEJA negative, ROSLYN negative, Sed rate normal, CRP normal - MRI of R hand done 04/30/24 - No joint effusion, synovitis, tenosynovitis or osseous erosion. Normal marrow signal, no pathologic enhancement. - XR knee 01/2024 - mild osteoarthritis in medial and patellofemoral joint compartments - XR SI joint 02/20/24 - Normal - XR Hand 02/20/24 - no erosive arthritis, moderate bilateral ulnar negative variance. - XR foot 02/20/24 - mild pes planus, moderate plantar calcaneal spur, no perirticular erosions. - final impression by Dr. Penaloza 06/08/24: Polyarthralgia Workup overall unrevealing with negative RF/CCP, ROSLYN, DEJA, and ESR/CRP within normal limits. X-rays with some degenerative changes, but no evidence of damage from inflammatory arthritis. Synovial fluid analysis previously done with noninflammatory joint fluid (outside records 09/22/2023). MRI of the right hand with and without contrast with no joint effusion or synovitis, tenosynovitis or osseous erosions. Marrow signal within normal limits. No pathologic enhancement. Discussed with patient that at this time, I do not see a clear underlying inflammatory arthritis. Degenerative changes could be 1 source of joint pain and I do suspect that myofascial pain, possibly fibromyalgia may also be a contributor. She has been developing some patchy areas over her elbows in the winter. I have encouraged her to get this evaluated for psoriasis if this worsens. It is possible she could be in the early stages of development of inflammatory arthritis such as psoriatic arthritis, but discussed with her that given the lack of objective data at this point, I do not recommend treatment with DMARDs. I do recommend that she continue to follow-up with her PCP and with her pain medicine doctor and potentially explore other options for treatment of myofascial pain/fibromyalgia. Per patient: Joint symptoms progressively worsening over the past few years. - Hands, knees, shoulders, back, - Sees pain management for DDD, spinal stenosis, fibromyalgia - Bilateral hand pain, R>L, knees, back, shoulders, Medial aspect of knee. She wakes up with hand in a claw formation in R hand. Can't open jars any more due to her pian. Difficulty opening doorknob. Good days and bad days. She can do things but then pays for it for a few days. Joint pain flares with weather. No increased obvious swelling. Pain management - Tramadol 2 tablet BID. Also muscle relaxer at night. - Advil 600 mg as needed - PCP told her to minimize -does get benefit - Cymbalta started for depression years ago - gabapentin 300 mg BID - restarted by PCP hard to know if helping. Never been on Lyrica. - Pain management did cortisone injection in Left knee - first time not much longstanding improvement Admits she was flexible as child, but not recently. 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 She gets dry skin on her elbow and knees in the wintertime. Doesn't feel most consistent with PsO, no other skin rashes. Never saw dermatology for this. No history of dactylitis. R foot occasionally toes and ankles swollen No nail pitting Back pain in AM, sometimes wakes her up at night, worse with exertion. Not improved with exercise. No history of inflammatory eye disease. No IBD. RUQ pain - PCP started on Protonix and something else for pain Kaushik Ayala is a 54-year-old female with a history of degenerative disc disease, spinal stenosis, and DM, presenting for evaluation of chronic joint pain and stiffness. Kaushik reports a current pain level of 6 (more content not included)... Normal [facility] CRP [facility] 02-10-2025 CRP [Mass/Vol] 0.8 mg/dL Normal <0.9 [facility] Comment on above: Order Comment: Lakeshia kimble Type: BLOOD SPECIMEN Ordering Facility: [facility] Address: [address] [place] [address] Performed By: #### 1 988-5, 90119-6 #### [facility] CLIA [id number] [address] [place] [address] [place] Cyclic citrullinated peptide IgG Qnon 02-10-2025 CCP ANTIBODY IGG QUALITATIVE Negative Normal Negative [facility] Comment on above: Order Comment: Lakeshia kimble Type: BLOOD SPECIMEN Ordering Facility: [facility] Address: [address] [place] [address] Performed By: #### 3 3935-8 #### [facility] CLIA [id number] [address] [place] [address] [place] ESR Westergren method (Bld) [Velocity]on 02-10-2025 ESR (Bld) [Velocity] 7 mm/h Normal 0-20 [facility] Comment on above: Order Comment: Speci men Type: BLOOD SPECIMEN Ordering Facility: [facility] Address: [address] [place] [address] Performed By: #### 4 537-7 #### [facility] CLIA [id number] [address] [place] [address] [place] No Panel Informationon 02-10 Interpretation and review of laboratory results Normal [facility] RHEUMATOID FACTORon 02-11-20 25 Rheumatoid factor Qn NINF [facility] Rheumatoid fact SerPl-aCncon 02-10-2025 Rheumatoid factor Qn [IU]/mL Normal <16 [facility] Comment on above: Order Comment: Speci men Type: BLOOD SPECIMEN Ordering Facility: [facility] Address: [address] [place] [address] Performed By: #### 1 988-5, 61725-6 #### [facility] CLIA [id number] [address] [place] [address] [place] XR HAND 3V PA/LAT/OBL BILon 02-10-2025 XR HAND 3V PA/LAT/OBL MANSI * * *Final Report* * * DATE OF EXAM: Feb 10 2025 10:33AM [id number] [id number] - XR HAND 3V PA/LAT/OBL MANSI / PROCEDURE REASON: Polyarthralgia * * * * Physician Interpretation * * * * EXAMINATION / TECHNIQUE: XR HAND 3V PA/LAT/OBL MANSI HISTORY: PT STATES BILAT HAND PAIN > ON RIGHT Polyarthralgia COMPARISON: None. RESULT: No acute fracture or osseous malalignment is identified. The joint spaces are preserved. No osseous erosion. IMPRESSION: No acute bony abnormality. Health And Safety Tech: IRMA Transcribe Date/Time: Feb 16 2025 9:28P Dictated by : ORLANDO ARORA MD This examination was interpreted and the report reviewed and electronically signed by: ORLANDO ARORA MD on Feb 16 2025 9:28PM EST [id number] N Normal [facility] cCP IgG SerPl-aCncon 07-17-2 025 Cyclic citrullinated peptide IgG Qn <15 Normal <20 [facility] Comment on above: Order Comment: Speci men Type: BLOOD SPECIMEN Ordering Facility: [facility] Address: [address] [place] [address] Performed By: #### 3 3935-8 #### [facility] CLIA [id number] [address] [place] [address] [place] OPERATIVE PROCEDURESon 02-[address] [facility] OPERATIVE REPORT NAME ACCOUNT SEX AGE ADMIT DISCHARGE PT MED. RECORD# NUMBER DATE DATE TYPE BRUCE [id number] F 54 01/31/25 01/31/25 2 KAUSHIK Subramanian [id number] ROOM: DATE OF : 1970 DICTATING PHYSICIAN: Shai Erickson DATE OF PROCEDURE: January 31, 2025 SURGEON: Shai Erickson DO PARTS FABRICATOR: None. ANESTHESIA: Local. PREPROCEDURE DIAGNOSIS: Osteoarthritis left knee/M17.12. POSTPROCEDURE DIAGNOSIS: Osteoarthritis left knee/M17.12. PROCEDURE: Left knee injection for diagnostic and therapeutic purposes under palpatory guidance. COMPLICATIONS: None. IV FLUIDS: None. ESTIMATED BLOOD LOSS: None. INDICATIONS OF PROCEDURE: This is a 54-year-old female who is having difficulty ambulating secondary to the pain in her left knee. She has bilateral knee pain, but the left is certainly worse. She agrees to the risks and benefits of the procedure. DESCRIPTION OF OPERATION: This 54-year-old female was taken to the Pain Block room and was placed in the sitting position. Under sterile prep with Betadine and alcohol to the lateral inferior aspect of the left knee, a #25 gauge needle was placed into the left knee/joint space. After negative aspiration, Kenalog 40 mg with Marcaine 0.25% preservative-free 4 mL was then injected. The needle was then removed intact. Dictated By: Shai Erickson DO 01/31/25 12:07 JOB #: [id number] Transcribed By: am 01/31/25 15:29 Page 1 of 2 KAUSHIK RODRÍGUEZ Operative Report KAUSHIK RODRÍGUEZ : 1970 Electronically signed by: E-SIGN: SHAI ERICKSON 02/01/25 07:33 Page 2 of 2 KAUSHIK RODRÍGUEZ Operative Report Normal [facility] KNEE COMPLETE LT MIN 4 VIEWS on 01-31-2025 KNEE COMPLETE LT MIN [address] [address] Patient: KAUSHIK RODRÍGUEZ Phone#: : 1970 Age: 54 Gender: F Pt. Type: Out Account: [id number] Location: 062 Ordering: SHAI ERICKSON Exam Date: 01/31/2025/12:48 Family Phys: GEETA SANABRIA Charge Code: 403997 Physician: Citrus Order #: [id number] Dose#: PROCEDURE: X-RAY KNEE LT COMPLETE 4 VIEWS COMPARISON: [facility], XR, KNEE COMPLETE LT MIN 4 VIEWS, 09/22/2023, 11:28. INDICATIONS: Bilateral knee pain. FINDINGS: BONES: Medial compartment joint space loss. Minimal spurring at the undersurface of the patella SOFT TISSUES: Negative. No visible soft tissue swelling. EFFUSION: Small suprapatellar joint effusion OTHER: Negative. CONCLUSION: 1. Medial compartment joint space loss Dictated by: Lisseth Rodriguez MD on 01/31/2025 at 14:25 Approved by: Lisseth Rodriguez MD on 01/31/2025 at 14:27 Normal [facility] KNEE COMPLETE RT MIN 4 VIEWS on 01-31-2025 KNEE COMPLETE RT MIN [address] [address] Patient: KAUSHIK RODRÍGUEZ Phone#: : 1970 Age: 54 Gender: F Pt. Type: Out Account: [id number] Location: 062 Ordering: SHAI ERICKSON Exam Date: 01/31/2025/12:43 Family Phys: GEETA SANABRIA Charge Code: [id number] Physician: Citrus Order #: [id number] Dose#: PROCEDURE: X-RAY KNEE RT COMPLETE 4 VIEWS COMPARISON: [facility], XR, KNEE COMPLETE RT MIN 4 VIEWS, 04/08/2022, 19:23. INDICATIONS: Bilateral knee pain. FINDINGS: BONES: Normal. No significant arthropathy or acute abnormality. No fracture or dislocation. SOFT TISSUES: Negative. No visible soft tissue swelling. EFFUSION: None visible. OTHER: Negative. CONCLUSION: 1. Unremarkable right knee radiograph Dictated by: Lisseth Rodriguez MD on 01/31/2025 at 14:17 Approved by: Lisseth Rodriguez MD on 01/31/2025 at 14:25 Normal [facility] Office Visit Reporton 2024 Office Visit Report [facility] [address] [place] [address] OFFICE VISIT Date of Service: 11/22/24 MR#: [id number] Acct: [id number] Patient: KAUSHIK RODRÍGUEZ Rep #: [id number] : 1970 Provider: SRIDEVI Sierra Age/Sex: 54/F Location: [facility] [place] Status: Signed Intake Vital Signs 10/01/23 13:36 Height 5 ft 7 in Intake Visit 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 Allergies morphine Adverse Reaction (Verified 10/01/23 13:26) PT UNSURE OF REACTION Office Procedures [facility] Billing Sheet Testing Pre-Employment Drug Screen: Yes 11/29/24 0828 Date Curt LAUREANO Cosigner Signature: Date (if applicable) CC: Normal [facility] HEMOGLOBIN A1C (POM)on 11-08 Glucose [Mass/Vol] 162.8 mg/dL High 0.0 - 0.0 [facility] Comment on above: Result Comment: Do HEMOGLOBIN A1C REFERENCE RANGESBLDo Suggested Diagnosis HbA1c(%) HbA1C (mmol/mol Diabetic >/=6.5 >/=48 Prediabetes 5.7 - 6.4 39 - 47 Normal <5.7 <39 Performed By: #### 2 59742 #### [facility],[address] [place] [address] 99848 HbA1c (Bld) [Mass fraction] 7.3 % High 0.0 - 6.5 [facility] Comment on above: Performed By: #### 2 05999 #### [facility],[address] [place] [address] 86654 URINE CULTURE [CCL]on 2024 Bacteria identified Cx Nom (U) URCUL See Results Below See Below CULTURE, URINE MIXED MICROBIOTA 50,000-<100,000 CFU/ml Mixed microbiota No further workup. Mixed microbiota can be due to???urine???contamin ation with s llection technique or straight catheterization for???urine???collect ion. SOURCE: Urine (Nonspecific) [place] [address] Imer Rodríguez III, M.D. [id number] SEND TO IC NO Normal [facility] Comment on above: Performed By: #### 2 83994 ####[facility],[address] [place] [address] 73689 Bacteria Ur Culton Bacteria identified Cx Nom (U) ORGANISM ID: 1 50,000-<100,000 CFU/ml Mixed microbiota No further workup. Mixed microbiota can be due to???urine???contamin ation with skin bacteria at time of collection or presence of a long-term urinary catheter. If a new culture is needed, please consider re-education of the patient on proper midstream co llection technique or straight catheterization for???urine???collect ion. Normal [facility] Comment on above: Performed By: #### 6 30-4 #### [facility] CLIA [id number] [address] [place], [place] [address] [address] [place] CBC (NO DIFF)on 08-10-2024 CBC panel Auto (Bld) Normal [facility] Comment on above: Result Comment: CBC( WITHOUT DIFFERENTIAL) Performed By: #### 2 20820 ####[facility],[address] [place] [address] 18269 Erythrocyte distribution width (RBC) [Ratio] 13.8 % Normal 12.0 - 15.6 [facility] Comment on above: Performed By: #### 2 74860 ####[facility],[address] [place] [address] 23330 Hematocrit (Bld) [Volume fraction] 41.1 % Normal 34.0 - 46.0 [facility] Comment on above: Performed By: #### 2 58841 ####[facility],[address] [place] [address] 14622 Hemoglobin (Bld) [Mass/Vol] 14.2 g/dL Normal 12.0 - 16.0 [facility] Comment on above: Performed By: #### 2 25955 ####[facility],[address] [place] [address] 31707 MCH (RBC) [Entitic mass] 29 pg Normal 27 - 33 [facility] Comment on above: Performed By: #### 2 36558 ####[facility],[address] [place] [address] 51787 MCHC 35 X10 3 Normal 32 - 36 [facility] Comment on above: Performed By: #### 2 95380 ####[facility],[address] [place] [address] 41914 MCV (RBC) [Entitic vol] 85 fL Normal 80 - 99 [facility] Comment on above: Performed By: #### 2 83536 ####[facility],[address] [place] [address] 66153 PLATELET 307 x10EE3/UL Normal 150 - 450 [facility] Comment on above: Performed By: #### 2 41038 ####[facility],[address] [place] [address] 11963 Platelet mean volume (Bld) [Entitic vol] 7.7 fL Normal 6.6 - 10.5 [facility] Comment on above: Performed By: #### 2 22728 ####[facility],[address] [place] [address] 76035 RBC 4.84 x 10EE6/UL Normal 4.10 - 5.30 [facility] Comment on above: Performed By: #### 2 35640 ####[facility],[address] [place] [address] 04236 WBC 9.4 x 10EE3/UL Normal 4.5 - 10.8 [facility] Comment on above: Performed By: #### 2 70202 ####[facility],[address] [place] [address] 27627 CMP with eGFRon 08-10-2024 AGE 53 years Normal [facility] Comment on above: Performed By: #### 2 87011 #### [facility],[address] [place] [address] 09753 Albumin [Mass/Vol] 3.5 g/dL Normal 3.4 - 5.0 [facility] Comment on above: Performed By: #### 2 74111 #### [facility],[address] [place] [address] 95120 Albumin/Globulin [Mass ratio] 1.1 {ratio} Normal 0.9 - 1.6 [facility] Comment on above: Performed By: #### 2 01955 #### [facility],[address] [place] [address] 93526 ALK PHOS 112 U/L Normal 46 - 116 [facility] Comment on above: Performed By: #### 2 75099 #### [facility],[address] [place] [address] 06625 ALT [Catalytic activity/Vol] 30 U/L Normal 16 - 63 [facility] Comment on above: Performed By: #### 2 66514 #### [facility],[address] [place] [address] 18710 Anion gap [Moles/Vol] 13 mmol/L Normal 10 - 20 [facility] Comment on above: Performed By: #### 2 35544 #### [facility],[address] [place] [address] 16241 AST [Catalytic activity/Vol] 16 U/L Normal 13 - 39 [facility] Comment on above: Performed By: #### 2 45451 #### [facility],[address] [place] [address] 79120 B/C RATIO 14 ratio Normal 0 - 30 [facility] Comment on above: Performed By: #### 2 28381 #### [facility],[address] [place] [address] 12075 Bilirubin [Mass/Vol] 1.4 mg/dL High 0.2 - 1.0 [facility] Comment on above: Performed By: #### 2 81765 #### [facility],[address] [place] [address] 67793 Calcium [Mass/Vol] 9.0 mg/dL Normal 8.5 - 10.1 [facility] Comment on above: Performed By: #### 2 61188 #### [facility],[address] [place] [address] 30383 Chloride [Moles/Vol] 105 mmol/L Normal 98 - 107 [facility] Comment on above: Performed By: #### 2 17469 #### [facility],[address] [place] [address] 05146 CMP with eGFR Normal [facility] Comment on above: Result Comment: COMP REHENSIVE METABOLIC PANEL Performed By: #### 2 55930 #### [facility],[address] [place] [address] 98762 CO2 [Moles/Vol] 28.1 mmol/L Normal 21.0 - 32.0 [facility] Comment on above: Performed By: #### 2 17312 #### [facility],[address] [place] [address] 15570 Creatinine [Mass/Vol] 0.72 mg/dL Normal 0.55 - 1.02 [facility] Comment on above: Performed By: #### 2 12332 #### [facility],[address] [place] [address] 63530 GFR/1.73 sq M.predicted among non-blacks MDRD (S/P/Bld) [Vol rate/Area] mL/min/{1.73_m2} Normal 60 - 999 [facility] Comment on above: Performed By: #### 2 85997 #### [facility],[address] [place] [address] 77362 Result Comment: ACCO RDING TO THE NATIONAL KIDNEY DISEASE EDUCATION PROGRAM(NKDE), A NORMAL eGFR IS A VALUE GREATER THAN OR EQUAL TO 60 ML/MIN/1.73 SQ METERS. CHRONIC KIDNEY DISEASE: <60mL/MIN/1.73 SQ METERS KIDNEY FAILURE: <15mL/MIN/1.73 SQ METERS THIS TEST SHOULD ONLY BE USED FOR PATIENTS 18 YEARS OF AGE AND OLDER. Globulin (S) [Mass/Vol] 3.3 g/dL Normal 1.5 - 3.8 [facility] Comment on above: Performed By: #### 2 63195 #### [facility],[address] [place] [address] 19688 Glucose [Mass/Vol] 155 mg/dL High 74 - 106 [facility] Comment on above: Performed By: #### 2 03258 #### [facility],[address] [place] [address] 55506 Potassium [Moles/Vol] 4.2 mmol/L Normal 3.5 - 5.1 [facility] Comment on above: Performed By: #### 2 02058 #### [facility],[address] [place] [address] 13824 Protein [Mass/Vol] 6.8 g/dL Normal 6.4 - 8.2 [facility] Comment on above: Performed By: #### 2 37486 #### [facility],[address] [place] [address] 12818 Sodium [Moles/Vol] 142 mmol/L Normal 136 - 145 [facility] Comment on above: Performed By: #### 2 62074 #### [facility],[address] [place] [address] 75244 Urea nitrogen [Mass/Vol] 10 mg/dL Normal 7 - 18 [facility] Comment on above: Performed By: #### 2 46084 #### [facility],[address] [place] [address] 17406 HEMOGLOBIN A1C (POM)on 08-10 Glucose [Mass/Vol] 174.3 mg/dL High 0.0 - 0.0 [facility] Comment on above: Result Comment: BLDo HEMOGLOBIN A1C REFERENCE RANGESBLDo Suggested Diagnosis HbA1c(%) HbA1C (mmol/mol Diabetic >/=6.5 >/=48 Prediabetes 5.7 - 6.4 39 - 47 Normal <5.7 <39 Performed By: #### 2 02319 #### [facility],[address] [place] [address] 90593 HbA1c (Bld) [Mass fraction] 7.7 % High 0.0 - 6.5 [facility] Comment on above: Performed By: #### 2 15396 #### [facility],[address] [place] [address] 00624 LIPID PROFILEon 08-10-2024 Cholesterol [Mass/Vol] 108 mg/dL Normal 0 - 240 [facility] Comment on above: Performed By: #### 2 30949 #### [facility],[address] [place] [address] 35950 Cholesterol in HDL [Mass/Vol] 45 mg/dL Normal 40 - 60 [facility] Comment on above: Performed By: #### 2 68860 #### [facility],[address] [place] [address] 50367 Cholesterol in LDL [Mass/Vol] 44 mg/dL Normal 0 - 129 [facility] Comment on above: Performed By: #### 2 78973 #### [facility],[address] [place] [address] 30082 Cholesterol.total/Ch olesterol in HDL [Mass ratio] 2.4 {ratio} Normal 0.0 - 5.0 [facility] Comment on above: Performed By: #### 2 56907 #### [facility],[address] [place] [address] 14160 Lipid 1996 panel Normal [facility] Comment on above: Result Comment: LIPI D PROFILE Performed By: #### 2 73598 #### [facility],[address] [place] [address] 04837 Triglyceride [Mass/Vol] 97 mg/dL Normal 0 - 150 [facility] Comment on above: Performed By: #### 2 82200 #### [facility],[address] [place] [address] 18076 MR HAND RIGHT WITH AND WITHO UT CONTRASTon 04-27-2024 MR HAND RIGHT WITH AND WITHOUT CONTRAST EXAMINATION: MR HAND RIGHT WITH AND WITHOUT CONTRAST HISTORY: ORDERING SYSTEM PROVIDED HISTORY: Please evaluate for evidence of evidence of inflammatory arthritis, TECHNOLOGIST PROVIDED HISTORY: Illness/Other Reason for exam: Bilat hand pain x couple years, worse past 6 mo Encounter Type: Subsequent/Follow-up Additional signs and symptoms: . ORDERING SYSTEM PROVIDED DIAGNOSIS CODES: M25.50 Polyarthralgia COMPARISON: None. CONTRAST: GADOTERATE MEGLUMINE 0.5 MMOL/ML (376.9 MG/ML) INTRAVENOUS SOLUTION - 19 mL, FINDINGS: Pacemaker identification purposes only. IMPRESSION: Chest x-ray performed for pacemaker identification purposes. PD/trn Workstation ID: [id number] Addended: FriApr 30, 2024 9:44 AM by Gallito Ignacio MD ADDENDUM: Please ignore the earlier dictation. No joint effusion/synovitis, tenosynovitis or osseous erosions. Marrow signal is within normal limits. No pathologic enhancement. Musculature is maintained. No soft tissue mass. I compared with the hand x-rays performed on 02/20/2024. Workstation ID: [id number] Dictated by: GALLITO IGNACIO on FriApr 28, 2024 10:15:35 AM EDT Transcribed by: AMINA LAFLEUR on FriApr 28, 2024 10:17:27 AM EDT Finalized by: GALLITO IGNACIO on FriApr 28, 2024 10:33:59 AM EDT Normal [facility] Comment on above: Order Comment: Injur y/Trauma or Illness?:Illness/Other How long have you had these symptoms (acute/chronic)?:Chronic Reason for exam?:Pain History of cancer?:u Surgeries, chemotherapy, or radiation?:u Type of Exam?:Initial Additional signs and symptoms?:evaluate for inflammatory arthritis POC CREATININE - RALSon 10-0 Creatinine [Mass/Vol] 0.6 mg/dL Normal 0.4-1.1 [facility] Comment on above: Performed By: #### 4 8115 #### LAB [address] [place] [address] Orlando Cerda M.D. [id number] CBC (NO DIFF)on 04-19-2024 CBC panel Auto (Bld) Normal [facility] Comment on above: Result Comment: CBC( WITHOUT DIFFERENTIAL) Performed By: #### 2 44061 #### [facility],[address] [place], [place] [address] Erythrocyte distribution width (RBC) [Ratio] 13.4 % Normal 12.0 - 15.6 [facility] Comment on above: Performed By: #### 2 70000 #### [facility],[address] [place], [place] [address] Hematocrit (Bld) [Volume fraction] 45.3 % Normal 34.0 - 46.0 [facility] Comment on above: Performed By: #### 2 30521 #### [facility],[address] [place], [place] [address] Hemoglobin (Bld) [Mass/Vol] 15.4 g/dL Normal 12.0 - 16.0 [facility] Comment on above: Performed By: #### 2 45876 #### [facility],[address] [place] [address] 32571 MCH (RBC) [Entitic mass] 29 pg Normal 27 - 33 [facility] Comment on above: Performed By: #### 2 44820 #### [facility],[address] [place] [address] 49492 MCHC 34 X10 3 Normal 32 - 36 [facility] Comment on above: Performed By: #### 2 58758 #### [facility],[address] [place] [address] 26849 MCV (RBC) [Entitic vol] 85 fL Normal 80 - 99 [facility] Comment on above: Performed By: #### 2 28979 #### [facility],[address] [place] [address] 89165 PLATELET 265 x10EE3/UL Normal 150 - 450 [facility] Comment on above: Performed By: #### 2 94498 #### [facility],[address] [place] [address] 46529 Platelet mean volume (Bld) [Entitic vol] 8.4 fL Normal 6.6 - 10.5 [facility] Comment on above: Performed By: #### 2 56013 #### [facility],[address] [place] [address] 83719 RBC 5.32 x 10EE6/UL High 4.10 - 5.30 [facility] Comment on above: Performed By: #### 2 80084 #### [facility],[address] [place] [address] 67306 WBC 8.7 x 10EE3/UL Normal 4.5 - 10.8 [facility] Comment on above: Performed By: #### 2 17691 #### [facility],[address] [place] [address] 78620 HEMOGLOBIN A1C (POM)on 04-19 Glucose [Mass/Vol] 266.1 mg/dL High 0.0 - 0.0 [facility] Comment on above: Result Comment: BLDo HEMOGLOBIN A1C REFERENCE RANGESBLDo Suggested Diagnosis HbA1c(%) HbA1C (mmol/mol Diabetic >/=6.5 >/=48 Prediabetes 5.7 - 6.4 39 - 47 Normal <5.7 <39 Performed By: #### 2 28655 #### [facility],[address] [place] [address] 24859 HbA1c (Bld) [Mass fraction] 10.9 % High 0.0 - 6.5 [facility] Comment on above: Performed By: #### 2 13396 #### [facility],[address] [place] [address] 23120 ANAon 02-20-2024 ROSLYN TITER (TITER TYPE) < Normal <1:80 [facility] Comment on above: Order Comment: Injur y/Trauma or Illness?:Illness/Other How long have you had these symptoms (acute/chronic)?:Chronic Reason for exam?:Pain History of cancer?:u Surgeries, chemotherapy, or radiation?:u Type of Exam?:Initial Additional signs and symptoms?:evaluate for inflammatory arthritis Performed By: #### 4 5072 ####[facility] [address] [place] [address] Jose Dean M.D. [id number] CCP ANTIBODYon 02-20-2024 CCP AB < Normal <20.0 [facility] Comment on above: Result Comment: The following results were obtained with the [employer] Flash CCP3 chemiluminescent immunoassay. Values obtained with different manufacturers' assay methods may not be used interchangeably. Performed By: #### 4 7374 #### [facility] [address] [place] [address] Jose Dean M.D. [id number] CRP, INFLAMMATIONon 02-20-20 CRP [Mass/Vol] 3.5 mg/L Normal 0.0-10.0 [facility] Comment on above: Performed By: #### 4 5334 #### LAB [address] [place] [address] Orlando Cerda M.D. [id number] DEJA SCREEN (RO52,RO60,SSB,SM ,BUSINESS OBJECTS DEVELOPER,SCL-70,JO1)on 02-20-2024 DEJA SCREEN INTERPRETATION Negative Normal Negative [facility] Comment on above: Order Comment: The f ollowing results were obtained using [employer] Flash chemiluminescent immunoassay. Values obtained with different manufacturers' assay methods may not be used interchangeably. Result Comment: The DEJA Screen tests for Ro52, Ro60, SSB, SM, BUSINESS OBJECTS DEVELOPER, SCL-70, and JO1. Performed By: #### 4 5536 #### [facility] [address] [place] [address] Jose Dean M.D. [id number] RHEUMATOID FACTORon 02-20-20 24 RHEUMATOID FACTOR < Normal 0.0-14.0 [facility] Comment on above: Performed By: #### 4 6454 #### [facility] [address] [place] [address] Jose Dean M.D. [id number] SEDIMENTATION RATEon 024 SEDIMENTATION RATE, ERYTHROCYTE 4 mm/hr Normal 0-30 [facility] Comment on above: Performed By: #### 4 6477 #### [facility] [address] [id number] Orlando Cerda M.D. [id number] URIC ACIDon 02-20-2024 Urate [Mass/Vol] 3.1 mg/dL Normal 2.4-7.0 [facility] Comment on above: Performed By: #### 4 6629 #### [facility] [address] [place], [place] [address] Orlando Cerda M.D. [id number] XR FOOT LEFT 3+ VIEWS (STAND TIMMY)on 02-20-2024 XR FOOT LEFT 3+ VIEWS (STANDARD) EXAMINATION: XR FOOT LEFT 3+ VIEWS (STANDARD) HISTORY: ORDERING SYSTEM PROVIDED HISTORY: Please evalaute for inflammatory arthritis, TECHNOLOGIST PROVIDED HISTORY: Illness/Other Reason for exam: Left foot pain Cancer History: u Surgery, RadiationHistory: u Encounter Type: Initial Additional signs and symptoms: evaluate for inflammatory arthritis ORDERING SYSTEM PROVIDED DIAGNOSIS CODES: M25.50 Polyarthralgia COMPARISON: None FINDINGS: Three views of the left foot. No acute fracture. Joint alignment is anatomic. Joint spaces are preserved. There are no periarticular erosions. Soft tissues are within normal limits. There is a small plantar calcaneal spur. IMPRESSION: Small plantar calcaneal spur. Otherwise, normal left foot radiographs. There is no evidence for erosive arthrosis. Workstation ID: [id number] Dictated by: TANYA LAMBERT on FriFeb 24, 2024 10:48:54 AM EDT Transcribed by: TANYA LAMBERT on FriFeb 24, 2024 10:48:54 AM EDT Finalized by: TANYA LAMBERT on FriFeb 24, 2024 10:48:54 AM EDT [facility] Comment on above: Order Comment: Injur y/Trauma or Illness?:Illness/Other How long have you had these symptoms (acute/chronic)?:Chronic Reason for exam?:Left foot pain History of cancer?:u Surgeries, chemotherapy, or radiation?:u Type of Exam?:Initial Additional signs and symptoms?:evaluate for inflammatory arthritis XR FOOT RIGHT 3+ VIEWS (TIAGO CHÁVEZ)on 02-20-2024 XR FOOT RIGHT 3+ VIEWS (STANDARD) EXAMINATION: XR FOOT RIGHT 3+ VIEWS (STANDARD) HISTORY: ORDERING SYSTEM PROVIDED HISTORY: Please evalaute for inflammatory arthritis, TECHNOLOGIST PROVIDED HISTORY: Illness/Other Reason for exam: Right foot pain Cancer History: u Surgery, RadiationHistory: u Encounter Type: Initial Additional signs and symptoms: evaluate for inflammatory arthritis ORDERING SYSTEM PROVIDED DIAGNOSIS CODES: M25.50 Polyarthralgia COMPARISON: None FINDINGS: Three weight-bearing views of the right foot. No acute fracture. Joint alignment is anatomic. Joint spaces are preserved. There are no periarticular erosions. Soft tissues are within normal limits. There is a moderately sized plantar calcaneal spur. There is mild pes planus on the lateral view. IMPRESSION: 1. Mild pes planus. 2. Moderate plantar calcaneal spur. 3. There are no periarticular erosions. Workstation ID: [id number] Dictated by: TANYA LAMBERT on FriFeb 24, 2024 10:49:42 AM EDT Transcribed by: TANYA LAMBERT on FriFeb 24, 2024 10:49:42 AM EDT Finalized by: TANYA LAMBERT on FriFeb 24, 2024 10:49:42 AM EDT [facility] Comment on above: Order Comment: Injur y/Trauma or Illness?:Illness/Other How long have you had these symptoms (acute/chronic)?:Chronic Reason for exam?:Pain History of cancer?:u Surgeries, chemotherapy, or radiation?:u Type of Exam?:Initial Additional signs and symptoms?:evaluate for inflammatory arthritis XR HANDS BILATERAL BALL CATC HERS 2 VIEWSon 02-20-2024 XR HANDS BILATERAL BALL CATCHERS 2 VIEWS EXAMINATION: XR HANDS BILATERAL BALL CATCHERS 2 VIEWS HISTORY: ORDERING SYSTEM PROVIDED HISTORY: Please evaluate for inflammatory arthritis, TECHNOLOGIST PROVIDED HISTORY: Illness/Other Reason for exam: bilateral hand pain and stiffness Cancer History: u Surgery, RadiationHistory: u Encounter Type: Initial Additional signs and symptoms: evaluate for inflammatory arthritis ORDERING SYSTEM PROVIDED DIAGNOSIS CODES: M25.50 Polyarthralgia COMPARISON: None FINDINGS: PA and AP ball catcher's views of both hands. The bilateral wrists and hands maintain normal alignment. There is no fracture or dislocation. The joint spaces are well preserved. There are no periarticular erosions. The soft tissues appear normal. There is moderate bilateral ulnar negative variance. IMPRESSION: 1. There is no erosive arthrosis. 2. Moderate bilateral ulnar negative variance. Workstation ID: [id number] Dictated by: TANYA LAMBERT on FriFeb 24, 2024 11:00:16 AM EDT Transcribed by: TANYA LAMBERT on FriFeb 24, 2024 11:00:16 AM EDT Finalized by: TANYA LAMBERT on FriFeb 24, 2024 11:00:16 AM EDT [facility] Comment on above: Order Comment: Injur y/Trauma or Illness?:Illness/Other How long have you had these symptoms (acute/chronic)?:Chronic Reason for exam?:bilateral hand pain and stiffness History of cancer?:u Surgeries, chemotherapy, or radiation?:u Type of Exam?:Initial Additional signs and symptoms?:evaluate for inflammatory arthritis XR KNEES BILATERAL WB OA 3 V IEWSon 02-20-2024 XR KNEES BILATERAL WB OA 3 VIEWS EXAMINATION: XR KNEES BILATERAL WB OA 3 VIEWS HISTORY: ORDERING SYSTEM PROVIDED HISTORY: Polyarthralgia, TECHNOLOGIST PROVIDED HISTORY: Illness/Other Reason for exam: polyarthralgia, bilateral knee pain, left worse than right Cancer History: u Surgery, RadiationHistory: u Encounter Type: Initial Additional signs and symptoms: evaluate for inflammatory arthritis ORDERING SYSTEM PROVIDED DIAGNOSIS CODES: M25.50 Polyarthralgia COMPARISON: None FINDINGS: AP view of both knees. Oblique and lateral views of each individual knee. There is mild narrowing of the medial and patellofemoral joint compartment of both knees with mild marginal hypertrophic spurring. There is no fracture or dislocation. There is no knee joint effusion. IMPRESSION: Mild degenerative osteoarthritis in the medial joint compartment of each knee. Workstation ID: [id number] Dictated by: TANYA LAMBERT on FriFeb 24, 2024 11:02:37 AM EDT Transcribed by: TANYA LAMBERT on FriFeb 24, 2024 11:02:37 AM EDT Finalized by: TANYA LAMBERT on FriFeb 24, 2024 11:02:37 AM EDT [facility] Comment on above: Order Comment: Injur y/Trauma or Illness?:Illness/Other How long have you had these symptoms (acute/chronic)?:Chronic Reason for exam?:Pain History of cancer?:u Surgeries, chemotherapy, or radiation?:u Type of Exam?:Initial Additional signs and symptoms?:evaluate for inflammatory arthritis XR SI JOINTS 3+ VIEWSon 01-26 XR SI JOINTS 3+ VIEWS EXAMINATION: XR SI JOINTS 3+ VIEWS HISTORY: ORDERING SYSTEM PROVIDED HISTORY: Please evaluate for sacroillitis with wadsworth view, TECHNOLOGIST PROVIDED HISTORY: Illness/Other Reason for exam: Pain Cancer History: u Surgery, RadiationHistory: u Encounter Type: Initial Additional signs and symptoms: evaluate for inflammatory arthritis ORDERING SYSTEM PROVIDED DIAGNOSIS CODES: M25.50 Polyarthralgia COMPARISON: None FINDINGS: AP and both obliques views of the SI joints. The pelvic ring is intact. The SI joints appear symmetric and within normal limits. There are no erosions. There is no fracture. The hips are visualized in the hip joint spaces are normal. IMPRESSION: Normal SI joints. Workstation ID: [id number] Dictated by: TANYA LAMBERT on FriFeb 24, 2024 11:01:24 AM EDT Transcribed by: TANYA LAMBERT on FriFeb 24, 2024 11:01:24 AM EDT Finalized by: TANYA LAMBERT on FriFeb 24, 2024 11:01:24 AM EDT [facility] Comment on above: Order Comment: Injur y/Trauma or Illness?:Illness/Other How long have you had these symptoms (acute/chronic)?:Chronic Reason for exam?:Pain History of cancer?:u Surgeries, chemotherapy, or radiation?:u Type of Exam?:Initial Additional signs and symptoms?:evaluate for inflammatory arthritis Kel 09-07-2023 JERARDO Patient: KAUSHIK RODRÍGUEZ [id number] Location: [facility] Aount: [id number] : 1970 Age: 53 Sex F Lab NumbEr [id number] Requested by: LEXA MAGANA Admitdate: 09/07/23 Source: UR Collected: 09/07/23 15:59 Site: Received : 09/07/23 15:59 Culture, Urine FINAL 09/09/23 09:19 09/08/23 AEROBIC CULTURE RESULTS: #1: HEAVY GNB COLONY COUNT: >100,000 CFU/ml Organism 01 Escherichia coli ____ Organism E. coli ANTIBIOTICS CECELIA Interp ____ Amikacin <16 S Amoxicillin/K Clavulanate <8/4 S Amp/Sulbactam <8/4 S Ampicillin <8 S Cefazolin <2 S Cefepime <2 S Cefotaxime <2 S Cefotetan <16 S Ceftazidime <1 S Ceftriaxone <1 S Ciprofloxacin <1 S Ertapenem <0.5 S Gentamicin <4 S Levofloxacin <2 S Nitrofurantoin <32 S Piperacillin/Edgardo <16 S Tetracycline <4 S Tobramycin <4 S Trimeth/Sulfa <2/38 S ____ S=Sensitive I=Intermediate R=Resistant ____ Normal [facility] Comment on above: Performed By: #### M IC2 #### [address] [address] Library Manager Cytology Reporton 2022 Library Manager Cytology Report . 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 The rahda High-Risk HPV DNA Test is not intended for use as a screening device for Pap normal women under age 30 and is not intended to substitute for regular Pap screening. The radha High-Risk HPV DNA Test is designed to augment existing methods for the detection of cervical disease and should be used in conjunction with clinical information derived from other diagnostic and screening tests, physical examinations and full medical history in accordance with appropriate patient management procedures. NOTE: A negative result does not preclude the presence of HPV infection because results depend on adequate specimen collection, absence of inhibitors and sufficient DNA to be detected. As of: 04/24/23 11:49 EDT Pathology Reports Accession: Collected Date/Time: Received Date/Time: Pathologist: [id number] 04/18/2023 08:42 EDT 04/18/2023 18:00 EDT MD NOEL AGUDELO COMMENT: This Pap Test was successfully processed and evaluated with the assistance of the [employer] ThinPrep Test Imaging System. Electronically Signed by Pathology report verified by [facility] Screened by: NORMA Electronically signed by NOEL AGUDELO MD Sign-Out Date: 04/24/2023 16:47 Performing Lab: [facility], [address] [place] [address] Pathology Dept Disclaimer The Pap test is a screening test for cervical cancer. As evidenced by published data, it is subject to both inherent false negative and false positive results. Your patient's results should be interpreted in context with pertinent clinical history including gynecological examination. Normal [facility] [place] HPVon 04-23-2023 HPV Inter Normal See [facility] HPVN [facility] Comment on above: Order Comment: Order placed by AP_HPV_ORDER rule from [id number] Result Comment: High Risk HPV Typing: NEGATIVE HPV types 16, 18, 31, 33, 35, 39, 45, 51, 52, 56, 58, 59, 66 and 68 DNA were undetectable or below the pre-set threshold. The radha High-Risk HPV DNA Test is not intended for use as a screening device for Pap normal women under age 30 and is not intended to substitute for regular Pap screening. The radha High-Risk HPV DNA Test is designed to augment existing methods for the detection of cervical disease and should be used in conjunction with clinical information derived from other diagnostic and screening tests, physical examinations and full medical history in accordance with appropriate patient management procedures. NOTE: A negative result does not preclude the presence of HPV infection because results depend on adequate specimen collection, absence of inhibitors and sufficient DNA to be detected. See Interp HPVN Performed By: #### H PV #### [address] [address] HPV Source Cervix Normal [facility] Comment on above: Order Comment: Order placed by AP_HPV_ORDER rule from [id number] Performed By: #### H PV #### [address] [address] HGB A1Con 10-16-2021 Average glucose Estimated from glycated hemoglobin (Bld) [Mass/Vol] 283 mg/dL Normal [facility] Comment on above: Order Comment: Speci men Type: BLOOD SPECIMEN Ordering Facility: [facility] Address: [address] [place] [address] Result Comment: eAG: (Estimated average glucose) is a calculated value from HgbA1c and is uniforms sales representative of the average blood glucose level in the last 2-3 month period. Performed By: #### H BA1C #### [facility] CLIA [id number] [address] [place] [address] [place] HbA1c (Bld) [Mass fraction] 11.5 % High 4.3-5.6 [facility] Comment on above: Order Comment: Lakeshia kimble Type: BLOOD SPECIMEN Ordering Facility: [facility] Address: [address] [place] [address] Result Comment: Amer [place] Diabetes Association guidelines indicate that patients with HgbA1c in the range 5.7-6.4% are at increased risk for development of diabetes, and intervention by lifestyle modification may be beneficial. HgbA1c greater or equal to 6.5% is considered diagnostic of diabetes. Performed By: #### H BA1C #### [facility] CLIA [id number] [address] [place] [address] [place] RHEUMATOID FACTOR BLon 10-16 Rheumatoid factor Qn [IU]/mL Normal <16 [facility] Comment on above: Order Comment: [facility] Type: BLOOD SPECIMEN Ordering Facility: [facility] Address: [address] [place] [address] Performed By: #### R F #### [facility] CLIA [id number] [address] [place] [address] [place] DNA Antibody w/ Conf.on 12-27 DNA Antibody w/ Conf. <12 Normal <[address] [facility] Comment on above: Performed By: #### A NA1, DNA #### [facility] Immunology [address] [place] [phone] #### ENAID #### [facility] Routine Lab [address] [place] [phone] #### 125VTD #### [facility] Chemistry [address] [place], [place] [phone] #### ANAIFS #### [facility] Immuno Assay [address] [place] [phone] ROSLYN by IFAon 01-15-2021 ROSLYN Pattern ANANOT Normal [facility] Comment on above: Performed By: #### A NA1, DNA #### [facility] [address] [place] [phone] #### ENAID #### [facility] [address] [place] [phone] #### 125VTD #### [facility] Chemistry [address] [place] [phone] #### ANAIFS #### [facility]o Assay [address] [place] [phone] ROSLYN Titer Normal Negative [facility] Comment on above: Result Comment: Nega tive Normal range : negatie at <1:80 serum dilution. Performed By: #### A NA1, DNA #### [facility] [address] [place] [phone] #### ENAID #### [facility] [address] [place] [phone] #### 125VTD #### [facility] Chemistry [address] [place] [phone] #### ANAIFS #### [facility]o Assay [address] [place] [phone] Nuclear Ab IF (S) [Titer] Negative Normal Negative [facility] Comment on above: Performed By: #### A NA1, DNA #### [facility] [address] [place] [phone] #### ENAID #### [facility] [address] [place] [phone] #### 125VTD #### [facility] Chemistry [address] [place] [phone] #### ANAIFS #### [facility]o Assay [address] [place] [phone] DEJA Antibody Panelon 06-21-2 021 Centromere <0.2 Normal <1.[address] [facility] Comment on above: Performed By: #### A NA1, DNA #### [facility] [address] [place] [phone] #### ENAID #### [facility] [address] [place] [phone] #### 125VTD #### [facility] Chemistry [address] [place] [phone] #### ANAIFS #### [facility]o Assay [address] [place] [phone] Chromatin Antibody <0.2 Normal <1.0 [facility] Reference [facility] Comment on above: Performed By: #### A NA1, DNA #### [facility] [address] [place] [phone] #### ENAID #### [facility]ine [facility] [address] [place], [place] [address] #### 125VTD #### [facility] Chemistry [address] [place], [place] [address] #### ANAIFS #### [facility]o Assay [address] [place], [place] [address] DAVID 1 Antibody <0.2 Normal <1.[address] [facility] Comment on above: Performed By: #### A NA1, DNA #### [facility] [address] [place], [place] [address] #### ENAID #### [facility] [address] [place], [place] [address] #### 125VTD #### [facility] Chemistry [address] [place], [place] [address] #### ANAIFS #### [facility] Assay [address] [place], [place] [address] Ribosomal BUSINESS OBJECTS DEVELOPER <0.2 Normal <1.[address] [facility] Comment on above: Performed By: #### A NA1, DNA #### [facility] [address] [place], [place] [address] #### ENAID #### [facility] [address] [place], [place] [address] #### 125VTD #### [facility] Chemistry [address] [place], [place] [address] #### ANAIFS #### [facility] Assay [address] [place], [place] [address] BUSINESS OBJECTS DEVELOPER Antibody <0.2 Normal <1.[address] [facility] Comment on above: Performed By: #### A NA1, DNA #### [facility] [address] [place], [place] [address] #### ENAID #### [facility] [address] [place] [phone] #### 125VTD #### [facility] Chemistry [address] [place] [phone] #### ANAIFS #### [facility]o Assay [address] [place] [phone] Scleroderma IgG Ab <0.2 Normal <1.0 [facility] Comment on above: Performed By: #### A NA1, DNA #### [facility] [address] [place] [phone] #### ENAID #### [facility] [address] [place] [phone] #### 125VTD #### [facility] [address] #### ANAIFS #### [facility] Assay [address] Sm Antibody <0.2 Normal <1.[address] [facility] Comment on above: Performed By: #### A NA1, DNA #### [facility] [address] [place] [phone] #### ENAID #### [facility]ine [facility] [address] [place] [phone] #### 125VTD #### [facility] [address] [place] [phone] #### ANAIFS #### [facility] [address] [place] [phone] SSA Antibody <0.2 Normal <1.[address] [facility] Comment on above: Performed By: #### A NA1, DNA #### [facility] [address] [place], [place] [address] #### ENAID #### [facility]ine [facility] [address] [place], [place] [address] [phone] #### 125VTD #### [facility] [address] [place], [place] [address] [phone] #### ANAIFS #### [facility]o Assay [address] [place] [phone] SSB Antibody <0.2 Normal <1.[address] [facility] Comment on above: Performed By: #### A NA1, DNA #### [facility] [address] [place] [phone] #### ENAID #### [facility] [address] [place] [phone] #### 125VTD #### [facility] [address] [place] [phone] #### ANAIFS #### [facility]o Assay [address] [place] [phone] ROSLYN Panel 01-12-2021 ROSLYN by EIA 1.0 OD Ratio Normal [facility] Comment on above: Performed By: #### A NA1, DNA #### [facility] [address] [place] [phone] #### ENAID #### [facility] [address] [place] [phone] #### 125VTD #### [facility] [address] [place] [phone] #### ANAIFS #### [facility] Assay [address] [place] [phone] ROSLYN by EIA, Qual Positive Abnormal Negative [facility] Lab Comment on above: Performed By: #### A NA1, DNA #### [facility] [address] [place], [place] [address] #### ENAID #### [facility] [address] [place], [place] [address] [phone] #### 125VTD #### [facility] [address] [place] [phone] #### ANAIFS #### [facility]o Assay [address] [place], [place] [address] VitD, 1,25 Dihydroxyon 01-12 1,25 Dihydroxy VitD2 <4.0 Normal [facility] Reference Lab Comment on above: Performed By: #### A NA1, DNA #### [facility] [address] [place] [phone] #### ENAID #### [facility]ine [facility] [address] [place] [phone] #### 125VTD #### [facility] [address] [place] [phone] #### ANAIFS #### [facility]o Assay [address] [place], [place] [address] [phone] 1,25 Dihydroxy VitD3 54.7 pg/mL Normal [facility] Reference Lab Comment on above: Performed By: #### A NA1, DNA #### [facility] [address] [place], [place] [address] #### ENAID #### [facility]ine [facility] [address] [place] [phone] #### 125VTD #### [facility] [address] [place], [place] [address] [phone] #### ANAIFS #### [facility] [address] [place] [phone] Vit D,1,25 DiOH Normal 15.0-60.[address] [facility] Comment on above: Result Comment: 54.7 This test was developed and its performance characteristics determined by [facility]'s Rogerio Galvez [facility] [place] ( [facility]). It has not been cleared or approved by the FDA. [facility] is regulated under CLIA as qualified to perform high complexity testing. This test is used for clinical purposes. It should not be regarded as investigational or for research. Performed By: #### A NA1, DNA #### [facility] [address] [place] [address] #### ENAID #### [facility] Routine Lab [address] [place] [phone] #### 125VTD #### [facility] Chemistry [address] [place] [phone] #### ANAIFS #### [facility]o Assay [address] [place] [address] GC/Chlamydia Amplifon 2020 Chlamydia Amplif CLNEG Normal [facility] Reference [facility] GC Amplification NGNEG Normal [facility] GC/Chlam Amp Source Genital Normal [facility] Reference [facility] Hemoglobin A1con 11-19-2020 Glucose [Mass/Vol] 183 mg/dL Normal [facility] Reference Lab Comment on above: Performed By: #### H BA1C #### [facility] Routine Lab [address] [place] [address] HbA1c (Bld) [Mass fraction] 8.0 % High 4.3-5.[address] [facility] Comment on above: Performed By: #### H BA1C #### [facility] Routine Lab [address] [place] [address] Hemoglobin A1con 08-08-2020 Glucose [Mass/Vol] 246 mg/dL Normal [facility] Reference Lab Comment on above: Performed By: #### H BA1C #### [facility] Routine Lab [address] [place], [place] [phone] HbA1c (Bld) [Mass fraction] 10.2 % High 4.3-5.[address] [facility] Reference Lab Comment on above: Performed By: #### H BA1C #### [facility] Routine Lab [address] [place], [place] [phone] Hemoglobin A1con 04-12-2020 Glucose [Mass/Vol] 229 mg/dL Normal [facility] Reference Lab Comment on above: Performed By: #### H BA1C #### [facility] Routine Lab [address] [place], [place] [phone] HbA1c (Bld) [Mass fraction] 9.6 % High 4.3-5.[address] [facility] Comment on above: Performed By: #### H BA1C #### [facility] Routine Lab [address] [place], [place] [address] Vital Signs Date Time Vital Sign Value Performing Clinician Anton veliz 02-10-2025 09:24-0400 Body height 170.2 cm Charlie Merna PA-C Work Phone: [facility] 02-10-2025 09:24-0400 Body mass index (BMI) [Ratio] 37.53 kg/m2 Charlie Merna PA-C Work Phone: [facility] 02-10-2025 09:24-0400 Body weight 108.68 kg Charlie Merna PA-C Work Phone: [facility] 02-10-2025 09:24-0400 Diastolic blood pressure 84 mm[Hg] Charlie Mrena PA-C Work Phone: [facility] 02-10-2025 09:24-0400 Heart rate 93 /min Charlie Merna PA-C Work Phone: [facility] 02-10-2025 09:24-0400 SaO2% (BldA) [Mass fraction] 96 % Charlie Merna PA-C Work Phone: [facility] 02-10-2025 09:24-0400 Systolic blood pressure 131 mm[Hg] Charlie Bauman PA-C Work Phone: [facility] 06-08-2024 11:01-0500 Body mass index (BMI) [Ratio] 35.3 kg/m2 Jorge Falls DO Work Phone: [place] 06-08-2024 11:01-0500 Body weight 102.24 kg Jorge Falls DO Work Phone: [facility] 06-08-2024 11:01-0500 Diastolic blood pressure 87 mm[Hg] Jorge Falls DO Work Phone: [facility] 06-08-2024 11:01-0500 Heart rate 89 /min Jorge Falls DO Work Phone: [facility] 06-08-2024 11:01-0500 Systolic blood pressure 155 mm[Hg] Ojrge Falls DO Work Phone: [facility] Encounters Encounter Date Encounter Type Care Provider Facility Start: 02-16-2025 End: 02-18-2025 Follow-up encounter Charlie LAUREANO-C Work Phone: Rheumatology Start: 02-15-2025 End: 02-15-2025 ambulatory GEETA SANABRIA [facility] Start: 02-10-2025 End: 02-10-2025 ambulatory GEETA SANABRIA Facility:[facility] Start: 02-10-2025 End: 02-10-2025 Subsequent hospital visit by physician [facility] Lovely Alonzo Work Phone: Radiology Comment on above: Polyarthralgia [M25. 50] Start: 02-10-2025 End: 02-10-2025 ambulatory CHARLIE BAUMAN Facility:[facility] Start: 02-10-2025 End: 02-10-2025 Patient encounter procedure Charlie Guptaser PA-C Work Phone: Rheumatology Comment on above: Polyarthralgia (Prim kyaw Dx); Fibromyalgia; Trigger middle finger of right hand Start: 01-31-2025 End: 01-31-2025 ambulatory SHAI ERICKSON [facility] Start: 01-10-2025 [facility] Start: 11-22-2024 End: 11-22-2024 ambulatory Geeta Sanabria Facility:[facility] [place] [place] Start: 11-15-2024 End: 11-15-2024 ambulatory SHAI ERICKSON [facility] Start: 11-08-2024 End: 11-08-2024 [facility] Start: 08-23-2024 End: 08-23-2024 ambulatory SHAI ERICKSON [facility] Start: 08-17-2024 End: 08-17-2024 [facility] Start: 08-10-2024 End: 08-10-2024 [facility] Start: 06-08-2024 End: 06-08-2024 Office outpatient visit [facility] Work Phone: [facility] Comment on above: Polyarthralgia (Prim kyaw Dx) Start: 06-08-2024 End: 06-08-2024 ambulatory [facility] Start: 05-04-2024 End: 05-04-2024 ambulatory SHAI ERICKSON [facility] Start: 04-27-2024 End: 04-27-2024 ambulatory [facility] Start: 04-19-2024 End: 04-19-2024 [facility] Start: 03-09-2024 End: 03-09-2024 ambulatory [facility] Start: 02-26-2024 [facility] Start: 02-20-2024 End: 02-24-2024 ambulatory [facility] Start: 02-20-2024 End: 02-20-2024 ambulatory GEETA SANABRIA [facility] Start: 09-07-2023 End: 09-07-2023 ambulatory LEXA ALBRIGHT Facility: Plan of Treatment Date Care Activity Detail Author Start: 11-02-2029 Tetanus vaccination Tetanus: Every 1 0yrs [facility] Start: 11-02-2029 Urine microalbumin profile DTaP,Tdap,Td Vaccine (2 - Td or Tdap) [facility] Start: 03-01-2026 Diabetes Screening Diabetes Screenin g [facility] Start: 05-18-2025 End: 05-18-2025 Patient encounter procedure 05/18/2025 8:30 AM EDT Office Visit Rheumatology [address] [place], [place] [id number] Charlie Bauman PA-C [address] [place], [place] [phone] 3 month follow up Rheumatology Comment on above: 3 month follow up Start: 03-28-2025 Influenza vaccination Influenza Vacc ine (#1) [facility] Start: 02-10-2025 End: 05-12-2025 Cyclic citrullinated peptide IgG Ab [Units/volume] in Serum or Plasma [facility] Comment on above: Expected: 02/10/2025 , Expires: 05/12/2025 Start: 02-10-2025 End: 05-12-2025 Erythrocyte sedimentation rate [facility] Work Phone: Comment on above: Expected: 02/10/2025 , Expires: 05/12/2025 Start: 09-28-2024 End: 09-28-2024 Patient encounter procedure 09/28/2024 9:30 AM EST Office Visit [facility] [address] [facility] [place] [address] Jorge Penaloza, [address] [place] [phone] [facility] Start: 03-28-2024 COVID-19 Vaccine ( season) COVID-19 Vaccine ( season) [facility] Start: 2018 Administration of he rpes zoster vaccine Zoster Vaccines (1 of 2) [facility] Start: 2018 Screening for malign ant neoplasm of colon Flexible sigmoidoscopy [facility] Start: 2018 Shingrix Vaccine (1 of 2) Shingrix Vaccine (1 of 2) [facility] Start: 2013 Lipid panel Lipid Screening [facility] Start: 2013 Screening for malign ant neoplasm of colon [facility] Start: 2008 Screening for malign ant neoplasm of breast [facility] Start: 1998 Screening for malign ant neoplasm of cervix [facility] Start: 1989 Screening for malign ant neoplasm of cervix [facility] Start: 1987 Hepatitis B Vaccine (1 of - 19+ 3-dose series) Hepatitis B Vaccine (1 of - 19+ 3-dose series) [facility] Start: 1986 Anxiety Screening Anxiety Screening [facility] Start: 1986 Depression Screening Depression Scre ening [facility] Start: 1986 Hepatitis C screening Hepatitis C Sc reening [facility] Start: 1986 HIV screening HIV Screening [facility] Start: 1983 HIV screening HIV Screening [facility] Start: 1980 Depression screening using PHQ-9 (Patient Health Questionnaire 9) score Depression Screening/Follow-Up (PHQ-2/9) [facility] Start: 1971 History and physical examination, annual for health maintenance Wellness Visit [facility] Start: 1968 Screening for malign ant neoplasm of colon [facility] End: 03-12-2026 XR Hand - bilateral PA and Lateral and Oblique XR HAND GENERAL 3V PA/LAT/OBL BILATERAL Radiology Routine Polyarthralgia 1 Occurrences starting 02/10/2025 until 03/12/[address] [facility] Comment on above: 1 Occurrences starti ng 02/10/2025 until 03/12/2026 XR Hand - bilateral PA and Lateral and Oblique XR HAND GENERAL 3V PA/LAT/OBL BILATERAL Radiology Routine Polyarthralgia 02/10/2025 10:33 AM EDT [facility] Immunizations Immunization Date Immunization Notes Care Provider Bhaskar le 05-04-2024 influenza virus vacc ine, unspecified formulation Charlie Bauman PA-C Work Phone: [facility] Payers Date Payer Category Payer Self-pay 2024 Medicaid [employer] [id number] 2023 Medicaid (Managed Care) [employer] [id number] 2023 Private Health Insurance [id number] 1968 Unknown [id number] 2.16.840.1.863672.3.579.2. 90 1968 Unknown [id number] 2.16840.1.842624.3.579.2. 90 1968 Unknown [id number] 2.16.840.1.233389.3.579.2. 90 1968 Unknown [id number] 2.16.840.1.569998.3.579.2. 903 1968 Unknown [id number] 2.16.840.1.187502.3.579.2. 903 1968 Unknown [id number] 2.16.840.1.372154.3.579.2. 903 1968 Unknown [id number] 2.16.840.1.663453.3.579.2. 90 1968 Unknown [id number] 2.16.840.1.552129.3.579.2. 90 1968 Unknown [id number] 2.16.840.1.370751.3.579.2. 90 1968 Unknown [id number] 2.16.840.1.902115.3.579.2. 90 1968 Unknown [id number] 2.16.840.1.641881.3.579.2 90 1968 Unknown [id number] 2.16.840.1.328876.3.579.2. 65 1968 Unknown [id number] 2.16.840.1.803480.3.579.2. 65 1968 Unknown [id number] 2.16.840.1.151196.3.579.2. 65 1968 Unknown [id number] 2.16.840.1.441528.3.579.2. 651 1968 Unknown [id number] 2.16.840.1.379911.3.579.2. 651 1968 Unknown [id number] 2.16.840.1.104982.3.579.2. 651 1968 Unknown [id number] 2.16.840.1.274326.3.579.2. 65 1968 Unknown [id number] 2.16.840.1.867837.3.579.2. 65 1968 Unknown [id number] 2.16.840.1.225218.3.579.2. 65 Unknown [id number] 2.16.840.1.958654.3.579.2. 528 Unknown [id number] 2.16.840.1.558793.3.579.2. 462 Social History Date Type Detail Facility Tobacco smoking stat [facility] Tobacco smoking consumption unknown [facility] Start: 1970 Sex assigned at Not on file [facility] Start: 04-25-2024 Gender identity Identifies as female gender (finding) [facility] Start: 04-25-2024 Sexual orientation Heterosexual (fin ding) [facility] Start: 02-10-2025 Tobacco smoking stat [facility] Never smoked tobacco [facility] Start: 02-10-2025 Tobacco use and exposure Smokeless tobacco non-user [facility] Start: 02-10-2025 Alcoholic beverage intake Current drinker of alcohol (finding) [facility] Start: 02-10-2025 History of Social function [facility] Start: 02-10-2025 Tobacco use panel [facility] National Score (1-100), lower number is lower risk [address] [facility] Start: 07-01-2016 Alcohol Comment social [facility] NEGATED: Highlighted rowStart: NINF History of tobacco use Passive smoker [facility] Functional Status Date Assessment Result Facility 06-17-2014 Are you deaf, or do you have serious difficulty hearing No 06/17/2014 11:27 AM Ayanna Martinez LPN No [facility] 06-17-2014 Are you blind, or do you have serious difficulty seeing, even when wearing glasses No 06/17/2014 11:27 AM Ayanna Martinez LPN No [facility] 06-17-2014 Do you have serious difficulty walking or climbing stairs No 06/17/2014 11:27 AM Ayanna Martinez LPN No [facility] 06-17-2014 Do you have difficul ty dressing or bathing No 06/17/2014 11:27 AM Ayanna Martinez LPN No [facility] 06-17-2014 Because of a physica l, mental, or emotional condition, do you have difficulty doing errands alone such as visiting a physician's office or shopping No 06/17/2014 11:27 AM Ayanna Martinez LPN No [facility] Mental Status Date Assessment Result Facility 06-17-2014 Because of a physica l, mental, or emotional condition, do you have serious difficulty concentrating, remembering, or making decisions No 06/17/2014 11:27 AM EST Ayanna Julio LPN No [facility] Clinical Notes 09-27-2023 to 02-10-2025 Juve Medina RT(R) - 02/10/2025 10:30 AM EDTPatient Charlie Martinez PA-C - 02/10/2025 9:04 AM Jorge Riley DO - 06/08/2024 11:24 AM EST Note Date & Type Note Facility 02-10-2025 History of Present illness Narrative Radiology Service Progress Note PATIENT NAME: Kaushik Rodríguez DATE OF SERVICE: February 10, 2025 TIME: 11:42 AM PATIENT IDENTITY VERIFICATION COMPLETED USING TWO (2) IDENTIFIERS: Name and Date of confirmed by patient verbally. FALL SCREENING: Has the patient had 2 falls in the last year or 1 fall with injury or currently using an Ambulatory Assistive Device (Walker, Cane, Wheelchair, Crutches, etc.)? No PATIENT GENDER DATA: Assigned female at . status: : No status: NO. PATIENT RELEVANT IMPLANT DATA REVIEWED: Not Applicable PATIENT PRESENTS WITH AN IMPLANTABLE OR ATTACHED AUTOMOBILES SALESPERSON: No RADIOLOGY DEPARTMENT: General X-ray: Exam(s) Completed: Upper Extremity X-Ray(s): Hand, bilateral PERIPHERAL IV DATA: Not applicable SIGNED BY: RT Ulices(Moris) February 10, 2025 11:42 AM documented in this encounter [facility] 02-10-2025 Note HNO ID: [id number] Author: JUVE MEDINA RT(Moris) Service: ? Author Type: Technologist Type: Progress Notes Filed: 02/10/2025 11:44 Note Text: Radiology Service Progress Note PATIENT NAME: Kaushik Rodríguez DATE OF SERVICE: February 10, 2025 TIME: 11:42 AM PATIENT IDENTITY VERIFICATION COMPLETED USING TWO (2) IDENTIFIERS: Name and Date of confirmed by patient verbally. FALL SCREENING: Has the patient had 2 falls in the last year or 1 fall with injury or currently using an Ambulatory Assistive Device (Walker, Cane, Wheelchair, Crutches, etc.)? No PATIENT GENDER DATA: Assigned female at . status: : No status: NO. PATIENT RELEVANT IMPLANT DATA REVIEWED: Not Applicable PATIENT PRESENTS WITH AN IMPLANTABLE OR ATTACHED AUTOMOBILES SALESPERSON: No RADIOLOGY DEPARTMENT: General X-ray: Exam(s) Completed: Upper Extremity X-Ray(s): Hand, bilateral PERIPHERAL IV DATA: Not applicable SIGNED BY: RT Ulices(R) February 10, 2025 11:42 AM [facility] 02-10-2025 Instructions Charlie Bauman PA-C - 02/10/2025 10:13 AM EDT Consider Celebrex or Meloxicam for pain relief daily. documented in this encounter [facility] 02-10-2025 Note HNO ID: [id number] Author: CHARLIE BAUMAN PA-C Service: ? Author Type: Physician Networking Engineer Type: Progress Notes Filed: 02/10/2025 11:05 Note Text: Rheumatology CONSULTATION Date of Service: 02/10/2025 Patient:Kaushik Rodrígeuz Medical Record: [id number] Primary Care Physician: Nai Worthington MD Last Rheumatology visit: None at [facility] Referring Provider: No referring provider defined for this encounter. Recording using [employer] software for draft documentation of the visit was discussed with the patient/authorized uniforms sales representative; all questions welcomed and answered. Patient/authorized uniforms sales representative agreed to proceed History of Present Illness BRIEF RHEUM History: - Seen by Dr. Jorge Penaloza at [facility] in [place] 02/20/24 for polyarthralgia, history of psoriasis. - in 2023 was having multiple joint pain improving with activity and AM stiffness. Inflammatory arthritis is on the differential. - Testing included joint aspiration x 2 with non-inflammatory fluid - Lab testing 02/20/24 showed RF negative, CCP negative, DEJA negative, ROSLYN negative, Sed rate normal, CRP normal - MRI of R hand done 04/30/24 - No joint effusion, synovitis, tenosynovitis or osseous erosion. Normal marrow signal, no pathologic enhancement. - XR knee 01/2024 - mild osteoarthritis in medial and patellofemoral joint compartments - XR SI joint 02/20/24 - Normal - XR Hand 02/20/24 - no erosive arthritis, moderate bilateral ulnar negative variance. - XR foot 02/20/24 - mild pes planus, moderate plantar calcaneal spur, no perirticular erosions. - final impression by Dr. Penaloza 06/08/24: Polyarthralgia Workup overall unrevealing with negative RF/CCP, ROSLYN, DEJA, and ESR/CRP within normal limits. X-rays with some degenerative changes, but no evidence of damage from inflammatory arthritis. Synovial fluid analysis previously done with noninflammatory joint fluid (outside records 09/22/2023). MRI of the right hand with and without contrast with no joint effusion or synovitis, tenosynovitis or osseous erosions. Marrow signal within normal limits. No pathologic enhancement. Discussed with patient that at this time, I do not see a clear underlying inflammatory arthritis. Degenerative changes could be 1 source of joint pain and I do suspect that myofascial pain, possibly fibromyalgia may also be a contributor. She has been developing some patchy areas over her elbows in the winter. I have encouraged her to get this evaluated for psoriasis if this worsens. It is possible she could be in the early stages of development of inflammatory arthritis such as psoriatic arthritis, but discussed with her that given the lack of objective data at this point, I do not recommend treatment with DMARDs. I do recommend that she continue to follow-up with her PCP and with her pain medicine doctor and potentially explore other options for treatment of myofascial pain/fibromyalgia. Per patient: Joint symptoms progressively worsening over the past few years. - Hands, knees, shoulders, back, - Sees pain management for DDD, spinal stenosis, fibromyalgia - Bilateral hand pain, R>L, knees, back, shoulders, Medial aspect of knee. She wakes up with hand in a claw formation in R hand. Can't open jars any more due to her pian. Difficulty opening doorknob. Good days and bad days. She can do things but then pays for it for a few days. Joint pain flares with weather. No increased obvious swelling. Pain management - Tramadol 2 tablet BID. Also muscle relaxer at night. - Advil 600 mg as needed - PCP told her to minimize -does get benefit - Cymbalta started for depression years ago - gabapentin 300 mg BID - restarted by PCP hard to know if helping. Never been on Lyrica. - Pain management did cortisone injection in Left knee - first time not much longstanding improvement Admits she was flexible as child, but not recently. 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 She gets dry skin on her elbow and knees in the wintertime. Doesn't feel most consistent with PsO, no other skin rashes. Never saw dermatology for this. No history of dactylitis. R foot occasionally toes and ankles swollen No nail pitting Back pain in AM, sometimes wakes her up at night, worse with exertion. Not improved with exercise. No history of inflammatory eye disease. No IBD. RUQ pain - PCP started on Protonix and something else for pain Kaushik Ayala is a 54-year-old female with a history of degenerative disc disease, spinal stenosis, and DM, presenting for evaluation of chronic joint pain and stiffness. Kaushik reports a current pain level of 6 . She describes the pain as Aching, Throbbing. The pain is Continuous . Interventions tried include Medication. Kaushik is RF negative - 9 (10/15/2023). Her most recent ROSLYN was negative (06/14/2022). HPI Per [employer] notetaking software Kaushik reports prog (more content not included)... [facility] 02-10-2025 History of Present illness Narrative Images from the original note were not included. Rheumatology CONSULTATION Date of Service: 02/10/2025 Patient:Kaushik Rodríguez Medical Record: [id number] Primary Care Physician: Nai Worthington MD Last Rheumatology visit: None at [facility] Referring Provider: No referring provider defined for this encounter. Recording using ambient [employer] software for draft documentation of the visit was discussed with the patient/authorized uniforms sales representative; all questions welcomed and answered. Patient/authorized uniforms sales representative agreed to proceed History of Present Illness BRIEF RHEUM History: - Seen by Dr. Jorge Penaloza at [facility] in [place] 02/20/24 for polyarthralgia, history of psoriasis. - in 2023 was having multiple joint pain improving with activity and AM stiffness. Inflammatory arthritis is on the differential. - Testing included joint aspiration x 2 with non-inflammatory fluid - Lab testing 02/20/24 showed RF negative, CCP negative, DEJA negative, ROSLYN negative, Sed rate normal, CRP normal - MRI of R hand done 04/30/24 - No joint effusion, synovitis, tenosynovitis or osseous erosion. Normal marrow signal, no pathologic enhancement. - XR knee 01/2024 - mild osteoarthritis in medial and patellofemoral joint compartments - XR SI joint 02/20/24 - Normal - XR Hand 02/20/24 - no erosive arthritis, moderate bilateral ulnar negative variance. - XR foot 02/20/24 - mild pes planus, moderate plantar calcaneal spur, no perirticular erosions. - final impression by Dr. Penaloza 06/08/24: Polyarthralgia Workup overall unrevealing with negative RF/CCP, ROSLYN, DEJA, and ESR/CRP within normal limits. X-rays with some degenerative changes, but no evidence of damage from inflammatory arthritis. Synovial fluid analysis previously done with noninflammatory joint fluid (outside records 09/22/2023). MRI of the right hand with and without contrast with no joint effusion or synovitis, tenosynovitis or osseous erosions. Marrow signal within normal limits. No pathologic enhancement. Discussed with patient that at this time, I do not see a clear underlying inflammatory arthritis. Degenerative changes could be 1 source of joint pain and I do suspect that myofascial pain, possibly fibromyalgia may also be a contributor. She has been developing some patchy areas over her elbows in the winter. I have encouraged her to get this evaluated for psoriasis if this worsens. It is possible she could be in the early stages of development of inflammatory arthritis such as psoriatic arthritis, but discussed with her that given the lack of objective data at this point, I do not recommend treatment with DMARDs. I do recommend that she continue to follow-up with her PCP and with her pain medicine doctor and potentially explore other options for treatment of myofascial pain/fibromyalgia. Per patient: Joint symptoms progressively worsening over the past few years. - Hands, knees, shoulders, back, - Sees pain management for DDD, spinal stenosis, fibromyalgia - Bilateral hand pain, R>L, knees, back, shoulders, Medial aspect of knee. She wakes up with hand in a claw formation in R hand. Can't open jars any more due to her pian. Difficulty opening doorknob. Good days and bad days. She can do things but then pays for it for a few days. Joint pain flares with weather. No increased obvious swelling. Pain management - Tramadol 2 tablet BID. Also muscle relaxer at night. - Advil 600 mg as needed - PCP told her to minimize -does get benefit - Cymbalta started for depression years ago - gabapentin 300 mg BID - restarted by PCP hard to know if helping. Never been on Lyrica. - Pain management did cortisone injection in Left knee - first time not much longstanding improvement Admits she was flexible as child, but not recently. 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 She gets dry skin on her elbow and knees in the wintertime. Doesn't feel most consistent with PsO, no other skin rashes. Never saw dermatology for this. No history of dactylitis. R foot occasionally toes and ankles swollen No nail pitting Back pain in AM, sometimes wakes her up at night, worse with exertion. Not improved with exercise. No history of inflammatory eye disease. No IBD. RUQ pain - PCP started on Protonix and something else for pain Kaushik Ayala is a 54-year-old female with a history of degenerative disc disease, spinal stenosis, and DM, presenting for evaluation of chronic joint pain and stiffness. Kaushik reports a current pain level of 6 . She describes the pain as Aching, Throbbing. The pain is Continuous . Interventions tried include Medication. Kaushik is RF negative - 9 (10/15/2023). Her most recent ROSLYN was negative (06/14/2022). 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 She notes that her right hand is particularly affected, with severe pain and stiffness causing difficulty in opening jars and doorknobs. She experiences nocturnal episodes where her fingers form a claw-like position, particularly the middle finger, which is painful to straighten. This issue has worsened over the past year. She describes having good and bad days, with good days occurring when she avoids physical activity. However, engaging in activities often results in increased pain for several days. She reports that her back pain is worse in the morning and after physical activity, and exercise exacerbates the pain. She denies any relief from exercise. Kaushik has been under the care of a pain management doctor who confirmed diagnoses of degenerative disc disease and spinal stenosis. She is currently taking tramadol, 2 pills TID, and a muscle relaxant at night, though she is uncertain of its efficacy. She also takes Advil, 600-800 mg as needed, which provides some relief, especially when taken with tramadol. She recently restarted gabapentin about a month ago, as recommended by her primary care doctor, and notes improvement in neuropathy symptoms in her feet and toes, which previously felt like pins and needles. Kaushik has a history of joint aspirations and cortisone injections in her left knee, with the most recent injection given last week by her pain management doctor. She reports that the first injection provided minimal relief, and she is uncertain about the effectiveness of the recent injection. She denies any known trauma to her knees. She experiences scaly skin rashes on her elbows and knees during the winter but has not seen a electronic security specialist. She denies any history of iritis, uveitis, Crohn's disease, ulcerative colitis, oral or nasal ulcers, photosensitivity, or Raynaud's phenomenon. She reports occasional constipation alternating with normal bowel movements but denies any significant issues. She denies any history of blood clots or miscarriages. Kaushik has a family history of autoimmune conditions, with her maternal grandmother having rheumatoid arthritis and another grandmother having fibromyalgia. She denies any family history of lupus, Crohn's disease, ulcerative colitis, or psoriasis. She is currently taking Cymbalta for depression, which she has been on for several years. She denies any history of Lyrica use. She reports good sleep quality but acknowledges snoring. She denies any history of sleep apnea. Kaushik denies smoking, rare alcohol use, and denies drug use, including marijuana. She enjoys gardening and occasionally uses her daughter's hot tub for relief. She has three adult children and seven grandchildren. Pain Evaluation 07/01/2016 07/01/2016 09/28/2016 02/10/2025 Pain Evaluation Pain Score 5 5 5 6 Location Abdomen Abdomen Throat -- Location Comment generalized Description Sore Sore;Burning Sore Aching;Throbbing Duration (#) 1 2 1 -- Duration (Timeframe) Weeks Days Weeks Frequency Continuous Continuous Continuous Continuous Intervention Medication Medication Medication Patient-Entered Data N/A Review of Systems RHEUMATOLOGIC REVIEW OF SYSTEMS: No ulcers in mouth or nose No photosensenitivity No history of blood clots No miscarriages + fatigue NO history of Raynaud's No fevers No bright red painful eyes Dry mouth, no dry eyes - related to medication No sob No cough Diarrhea alternating with constipation + chronic back pain No history of psoriasis 1 hour morning stiffness No weight loss + neuropathy - feet and toes, but improving with gabapentin All other reviewed and negative other than HPI. Past Medical History PAST MEDICAL HISTORY Diagnosis Date Diabetes (HCC) Past Surgical History PAST SURGICAL HISTORY Procedure Laterality Date APPENDECTOMY 2010 SECTION HX x3 CHOLECYSTECTOMY 2012 HYSTERECTOMY HX 2007 partial Family History FAMILY HISTORY Problem Relation Age of Onset Breast Cancer Maternal Grandmother Ovarian cancer Paternal Grandmother Hypertension Mother Hypertension Father Diabetes Mother Heart Mother Grandmother with RA, Grandmother with Fibro No SLE, IBD, PsO Social History Social History Tobacco Use Smoking status: Never Passive exposure: Never Smokeless tobacco: Never Vaping Use Vaping status: Never Used Substance Use Topics Alcohol use: Yes Comment: social Drug use: No 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 Single 3 adult children, 7 grandchildren Current Medications Current Outpatient Medications Medication Sig aspirin, enteric coated (ASPIRIN, ENTERIC COATED) 81 mg EC tablet Take 81 mg by mouth once daily. atorvastatin (LIPITOR) 40 mg tablet Take 40 mg by mouth once daily. cetirizine HCl (ZYRTEC) 5 mg chewable tablet Take 5 mg by mouth once daily. cyclobenzaprine (FLEXERIL) 10 mg tablet Take 10 mg by mouth two times a day as needed. DULoxetine DR (CYMBALTA) 60 mg capsule Take 60 mg by mouth once daily. hydroCHLOROthiazide 25 mg tablet Take 25 mg by mouth once daily. losartan (COZAAR) 100 mg tablet Take 100 mg by mouth once daily. traMADol (ULTRAM) 50 mg tablet Take 50 mg by mouth every 4 hours as needed. pantoprazole DR (PROTONIX) 40 mg tablet Take 40 mg by mouth once daily. sucralfate (CARAFATE) 1 gram tablet Take 1 g by mouth four times daily. insulin glargine,hum.rec.anlog (LANTUS SUBCUTANEOUS) Inject 40 Units subcutaneously daily at bedtime. liraglutide (VICTOZA) 0.6 mg/ 0.1 ml subcutaneous pen injector Inject 1.2 mg subcutaneously once daily. insulin lispro (HUMALOG) 100 unit/mL injection Inject 5 Units subcutaneously three times a day before meals. And sliding scale gabapentin (NEURONTIN) 600 mg tablet Take 600 mg by mouth three times daily. (Patient taking differently: Take 300 mg by mouth two times a day.) metFORMIN (GLUCOPHAGE) 1,000 mg tablet Take 1 tablet by mouth daily with breakfast. (Patient taking differently: Take 1,000 mg by mouth two times a day with meals.) amLODIPine (NORVASC) 10 mg tablet Take 1 tablet by mouth once daily. venlafaxine XR (EFFEXOR XR) 37.5 mg 24 hr capsule Take 1 capsule by mouth once daily. (Patient not taking: Reported on 02/10/2025) Labs Latest Ref Rng & Units 10/16/2021 06/14/2022 10/15/2023 RF and CCP Rheumatoid Factor <16 IU/mL <10 <10 <10 Latest Ref Rng & Units 06/14/2022 Antibodies ROSLYN Negative Negative Latest Ref Rng & Units 06/17/2014 07/01/2016 Urinalysis Protein, Urine Neg mg/dL neg neg Imaging - MRI of R hand done 04/30/24 - No joint effusion, synovitis, tenosynovitis or osseous erosion. Normal marrow signal, no pathologic enhancement. - XR knee 01/2024 - mild osteoarthritis in medial and patellofemoral joint compartments - XR SI joint 02/20/24 - Normal - XR Hand 02/20/24 - no erosive arthritis, moderate bilateral ulnar negative variance. - XR foot 02/20/24 - mild pes planus, moderate plantar calcaneal spur, no perirticular erosions. Last XR Chest - Impression Only No resulted procedures found. Health Maintenance Current Immunizations Never Reviewed Name Date COVID-19 vaccine, monovalent (MODERNA) 08/22/2020, 07/24/2020 Physical Exam VITAL SIGNS: BP 131/84 Pulse 93 Ht 5' 7 (1.70m) Wt 239 lb 9.6 oz (108.7kg) SpO2 96% BMI 37.52 kg/(m^2). GENERAL APPEARANCE: Well groomed. Alert and oriented x 3. In no distress. SKIN: No rash, skin thickening, nodules, or discoloration. Rosacea noted on face EYES: normal conjunctiva HENT: Normal external examination of the ears and nose, lips, oropharynx and tongue. NECK: No mass or asymmetry. RESPIRATORY: Normal respiratory effort. Clear to auscultation CARDIOVASCULAR: Heart RRR without gallop, murmur, or rub ABDOMEN: BS normal. MUSCULOSKELETAL EXAMINATION: Soft tissue tender points: Mild generalized tenderness to forearms and proximal arm muscles as well as hip girdle and upper thighs, and paraspinal muscles of back. Motor exam: Normal bulk and tone. Spine: Cervical spine: No visible abnormalities. + tenderness to palpation in paraspinal muscles and trapezius muscles. Thoracic spine: No visible abnormalities. No tenderness to palpation. Lumbar spine: No visible abnormalities. + tenderness to palpation in paraspinal muscles in band-like distribution SI Joints: General tenderness to palpation over both SI joints. Negative Juan s Test Upper extremities: Shoulders: + tenderness to palpation bilaterally in anterior and posterior shoulder region. No swelling or effusion. Elbows: Full ROM in flexion and extension. No swelling or effusion. No tenderness to palpation to the joint line, olecranon, medial or lateral epicondyles. Wrists: Full ROM in all beaulieu. No swelling or synovitis. No tenderness to palpation Hands: painful preventative maintenance technician strength on the right. Decreased full flexion on the right. R 3rd finger with dificulty with flexion/extension. R hand with fullness and tenderness around PIPs however no clear active synovitis. right hand more tender than left; decreased preventative maintenance technician strength in right hand Lower extremities: Hips: Full ROM without pain. +tenderness to palpation along greater trochanter bilaterally. Knees: Full ROM in flexion and extension. No swelling or effusion. tenderness in medial aspect of left knee; Ankles: Full ROM in all beaulieu. No swelling or effusion. No tenderness to palpation along the joint line, medial/lateral malleolus, ATFL, PTFL, CFL, or Achilles Tendon. Feet: Full ROM in toe flexion/extension. No effusion. No tenderness to palpation. No evidence of MTP swelling. Beighton Score 1/9. - Left elbow with hyperextension, no other hyperextension noted Impression # Polyarthralgia (M25.50) - Previously Seen by Dr. Jorge Penaloza at [facility] in [place] 02/20/24 for polyarthralgia. Past testing included L knee joint aspiration x 2 with non-inflammatory fluid after history of atraumatic joint effusion of the left knee. - Lab testing 02/20/24 showed RF negative, CCP negative, DEJA negative, ROSLYN negative, Sed rate normal, CRP normal - MRI of R hand done 04/30/24 - No joint effusion, synovitis, tenosynovitis or osseous erosion. Normal marrow signal, no pathologic enhancement. - XR imaging shows mild osteoarthritis in knee, normal SI joints, no erosive disease in hands or feet. Toda she presents with chronic, diffuse joint pain affecting hands, knees, shoulders, and back. Pain also affects lare muscle groups. Pain is severe enough to impact daily activities and work, worse after overexertion. Family history of rheumatoid arthritisin grandmother. Current medications include Tramadol, Gabapentin, and Cymbalta from pain management. - ON exam she has synovial enlargement in R hand PIP joints and symptoms of R 3rd finger trgger finger. In light of otherwise negative workup thus far, I still feel at this time she has a clear inflammatory arthritis that requries DMARD therapy for her symptoms. - Ordered repeat x-rays of hands to assess for any progression of osteoarthritis or inflammatory changes. - Ordered repeat inflammation markers and rheumatoid antibodies. - Discussed potential use of prescription NSAIDs such as Celebrex or Meloxicam; advised to consult with primary care physician due to potential gastrointestinal and cardiovascular risks. - Referral to aquatic therapy at [facility] to engage in low-impact exercise. - Follow-up in 3 months to review results and assess response to therapy. # Fibromyalgia (M79.7) Symptoms most consistent with fibromyalgia, including diffuse pain and fatigue. Currently on Cymbalta and Gabapentin, which are also used for fibromyalgia management. No history of sleep apnea, but reports snoring and variable sleep quality. - Continue current medications. - Discussed importance of good sleep hygiene and potential re-evaluation for sleep apnea with primary care physician. - Recommended low-impact exercise, specifically aquatic therapy. Referral given - Discuss alternative medications with pain management provider # Trigger middle finger of right hand (M65.331) Reports locking and pain in the middle finger of the right hand, consistent with trigger finger. Previous MRI of the right hand showed no significant findings, however these sx have worsened recently - Referral to orthopedic hand specialist for evaluation and potential intervention. Orders this visit: Office Visit on 02/10/25 XR HAND GENERAL 3V PA/LAT/OBL BILATERAL SEDIMENTATION RATE, WESTERGREN C-REACTIVE PROTEIN RHEUMATOID FACTOR CCP ANTIBODY IGG CONSULT TO PHYSICAL THERAPY CONSULT TO ORTHOPAEDICS aspirin, enteric coated (ASPIRIN, ENTERIC COATED) 81 mg EC tablet atorvastatin (LIPITOR) 40 mg tablet cetirizine HCl (ZYRTEC) 5 mg chewable tablet cyclobenzaprine (FLEXERIL) [address] (CYMBALTA) 60 mg capsule hydroCHLOROthiazide 25 mg tablet losartan (COZAAR) 100 mg tablet traMADol (ULTRAM) [address] (PROTONIX) 40 mg tablet sucralfate (CARAFATE) 1 gram tablet insulin glargine,hum.rec.anlog (LANTUS SUBCUTANEOUS) liraglutide (VICTOZA) 0.6 mg/ 0.1 ml subcutaneous pen injector insulin lispro (HUMALOG) 100 unit/mL injection Return in about 3 months (around 05/13/2025). I spent a total of 65 minutes on the date of the service which included preparing to see the patient, [id number] patient care, completing clinical documentation, obtaining and/or reviewing separately obtained history, performing a medically appropriate examination, counseling and educating the patient/family/caregiver, ordering medications, tests, or procedures, and communicating results to the patient/family/caregiver. Charlie Bauman PA-C Rheumatology Date: February 10, 2025 Time: 11:04 AM documented in this encounter [facility] 01-31-[address] [facility] CONSULTATION REPORT NAME ACCOUNT SEX AGE ADMIT DISCHARGE PT MED. RECORD# NUMBER DATE DATE TYPE BRUCE, [id number] F 54 01/31/2025 01/31/2025 2 KAUSHIK Subramanian [id number] ROOM: DATE OF : 1970 DICTATING PHYSICIAN: Shai Erickson HISTORY OF PRESENT ILLNESS: The patient is seen today on January 31, 2025 at the [facility] in [place], [place]. The patient is doing fairly well from a low back standpoint other than it has been progressive in nature over time. She has been denied in the past for medial branch blocks of the facets, but the majority of the pain is axial in nature. Remote epidural injections apparently have decreased and almost obliterated her radicular pains. The patient does see a business development in [place] and is moving to [place] for a new business development. The patient recently had a new job, and now is no longer lifting. That certainly is helping her low back discomfort overall, but her left knee is hampering what she is doing. The patient utilizes tramadol one to two pills per day up to six total. She is taking less now because her job is no longer lifting. REVIEW OF SYSTEMS: The remainder of review of systems, intake form, pain questionnaire, nursing assessment, and OARRS report were reviewed. PHYSICAL EXAMINATION: GENERAL APPEARANCE: Reveals a pleasant 54-year-old female who is alert x3. She ambulates in the room in a mildly flexed position. VITAL SIGNS: She is 247 pounds and 67 inches. Pain level is a 5 out of 10. Pulse 90, respirations 18, and blood pressure 150/90. Cervical range of motion is preserved. She has posterior trigger points, which are mild in nature into the thoracic area. Her thyroid is not enlarged. HEART: Heart is regular. Peripheral pulses are maintained. LUNGS: Lungs are clear in all lung beaulieu. ABDOMEN: Abdomen is not acute. EXTREMITIES: The patient exhibits pain with lumbar extension from L4 to L5 mostly bilaterally. Lumbar flexion is full. Straight leg raising is negative. Examination of the knees reveal crepitance both left and right knee, the left knee has pain with weightbearing. ASSESSMENT: 1. Osteoarthritis/pain left greater than right knee. 2. Fibromyalgia/mild. 3. Autoimmune disease with probable psoriatic arthritis. 4. Obesity. Page 1 of 2 KAUSHIK RODRÍGUEZ Insurance Consultant Report KAUSHIK RODRÍGUEZ : 1970 5. Lumbar radiculitis/resolved since epidural injection. 6. Lumbar spondylosis without myelopathy. 7. Lumbosacral spondylosis. 8. Ypu-wktvxya-btzspixah diabetic neuropathy. 9. Degenerative lumbar disk disease. PLAN: We will ask her insurance for bilateral medial branch blocks of the L4-5 and L5-S1 facets under fluoroscopic guidance in a local fashion. She should turn around significantly from a low back standpoint and probably decrease her opioids further. We will inject her left knee for diagnostic and therapeutic purposes and get x-rays today, and hopefully we will see how long the injection lasts whether knee surgery is warranted. The patient agrees to the above. Dictated By: Shai Erickson DO 01/31/2025 12:10 JOB #: [id number] Transcribed By: am 01/31/2025 13:00 Electronically signed by: E-SIGN: SHAI ERICKSON 01/31/25 14:15 Page 2 of 2 KAUSHIK RODRÍGUEZ Insurance Consultant Report [facility] 11-15-[address] [facility] CONSULTATION REPORT NAME ACCOUNT SEX AGE ADMIT DISCHARGE PT MED. RECORD# NUMBER DATE DATE TYPE BRUCE, [id number] F 54 11/15/2024 11/15/2024 2 KAUSHIK Subramanian [id number] ROOM: DATE OF : 1970 DICTATING PHYSICIAN: Shai Erickson HISTORY OF PRESENT ILLNESS: The patient is seen today on November 15, 2024 at the [facility] in [place], [place]. The patient is still doing fairly well. She had an epidural injection for radicular pain almost a year ago. She is still doing quite well and utilizes only low dose tramadol. She does describe in her history neuropathy. She does suffer from diabetic neuropathy. She has been on gabapentin in the past. It did not appear effective at that time, but she was restarted on it recently and hopefully it will be beneficial for her. The patient complains of an inability to sleep at times. She did try duzn-akp-sqenymu marijuana, the synthetic form at the [employer]. It did afford some relief, and we spent quite a bit of time discussing medical marijuana as an adjunct. The patient takes Flexeril p.r.n. only at night because it does lead to sedation, and she cancelled her last appointment with her business development as it does not seem to be doing much for her per the patient's history. REVIEW OF SYSTEMS: The remainder of review of systems, intake form, pain questionnaire, nursing assessment, and OARRS report were reviewed. PHYSICAL EXAMINATION: GENERAL APPEARANCE: Reveals a pleasant 54-year-old female who is alert x3. She ambulates in the room in a fairly upright position. VITAL SIGNS: She is 239 pounds and 67 inches. Pain level is a 6 out of 10. Temperature is 97, pulse 100, respirations 18, and blood pressure initially 166/100, though she did state she ran to get here as she did not want to be late. Her cervical range of motion is preserved. Her thyroid is not enlarged. She does have decreased sensation in the hands and feet. HEART: Heart is regular. Peripheral pulses are maintained. LUNGS: Lungs are clear in all lung beaulieu. ABDOMEN: Soft and mildly rotund. EXTREMITIES: Range of motion of the lumbar spine is fairly full with only pain at extremes of extension, while lumbar flexion is full. Straight leg raising is negative. The patient does have mild trigger points identified in the posterior lumbar spine into the thoracic area. ASSESSMENT: 1. Fibromyalgia/mild. 2. Autoimmune disease/questionable psoriatic arthritis. 3. Lumbar radiculitis/resolved since epidural injection. 4. Obesity. Page 1 of 2 KAUSHIK RODRÍGUEZ Insurance Consultant Report KAUSHIK RODRÍGUEZ : 1970 5. Zob-vdtnsph-afyytyqgy diabetic neuropathy. PLAN: We will continue her tramadol p.r.n. and a Flexeril at night. She can consider medical marijuana as an alternative for pain and sleep. The patient agrees to the plan; otherwise, she will follow up in three months. Dictated By: Shai Erickson DO 11/15/2024 11:55 JOB #: [id number] Transcribed By: am 11/15/2024 11:59 Electronically signed by: E-SIGN: SHAI ERICKSON 11/15/24 12:37 Page 2 of 2 KAUSHIK RODRÍGUEZ Insurance Consultant Report [facility] 08-23-[address] [facility] CONSULTATION REPORT NAME ACCOUNT SEX AGE ADMIT DISCHARGE PT MED. RECORD# NUMBER DATE DATE TYPE BRUCE [id number] F 54 08/23/2024 08/23/2024 Gavin Subramanian [id number] ROOM: DATE OF : 1970 DICTATING PHYSICIAN: Shai Erickson HISTORY OF PRESENT ILLNESS: The patient is seen today on August 23, 2024 at the [facility] in [place], [place]. The patient states that she is doing fairly well from a low back and radicular standpoint. She had an epidural injection done last year. The injections last between 9 and 12 months for her, which is really good. Unfortunately, she has an multitude of other problems including joint pains. Her left knee hurts worse than her right knee. It has been drained once already. Her business development said she would like to drain the knee the next time it swells so she can probably take samples of the fluid. The patient is on opioid therapy for benign pain. She takes tramadol 100 mg t.i.d. dosing, and she states if she forgets to take the dose her functional status decreases dramatically. We discussed medication alternatives, but there are really few given her insurance restrictions. The insurance has denied Belbuca, a TENS unit, and certainly will deny any long-acting opioids, i.e. long-acting tramadol. The patient really has no choice but to comply with the current medical regimen. The patient was last seen by her business development and thought may be she had fibromyalgia. Certainly, she has some myofascial pain, but is already on Cymbalta, and we discussed adding Lyrica to her list of long medical regimen already would only lead to weight gain and probably not much functional status changes. The patient is a nonsmoker and nondrinker. REVIEW OF SYSTEMS: The remainder of review of systems, intake form, pain questionnaire, nursing assessment, and OARRS report were reviewed. PHYSICAL EXAMINATION: GENERAL APPEARANCE: Reveals a pleasant 53-year-old female who is alert x3. Her multiple allergies and past medical history was reviewed. Her cervical range of motion is full for her age. Her gait is flexed and her thyroid is not enlarged. HEART: Heart is regular. Peripheral pulses are maintained. LUNGS: Lungs are clear in all lung beaulieu. EXTREMITIES: The patient does state she has decreased sensation in her hands greater than her feet from the diabetic neuropathy. Range of motion of the lumbar spine is fairly full today with negative straight leg raising. The patient does have significant pain with left knee range of motion as compared to the right and mild swelling is noted. The patient does have some posterior trigger points in the cervical and thoracic area, but they are mild in nature. Page 1 of 2 BRUCE KAUSHIK Subramanian Insurance Consultant Report KAUSHIK RODRÍGUEZ : 1970 ASSESSMENT: 1. Osteoarthritis/pain bilateral knees. 2. Questionable autoimmune disease/business development workup in progress. 3. Fibromyalgia/mild. 4. Lumbar radiculitis/stable after epidural injections. 5. Lumbar spinal stenosis. 6. Obesity. 7. Lnu-fyxlfqd-fpbrthydf diabetic neuropathy/controlled. PLAN: We will continue the tramadol t.i.d. dosing at 100 mg dose. She will have to take two 50 mg to get that dose, and she will use Flexeril at night when the pain is severe. The patient will follow up with her business development for knee aspiration. Dictated By: Shai Erickson DO 08/23/2024 11:16 JOB #: [id number] Transcribed By: am 08/23/2024 11:36 Electronically signed by: E-SIGN: SHAI ERICKSON 08/23/24 15:23 Page 2 of 2 BRUCEKAUSHIK SHARMA Moris Insurance Consultant Report [facility] 06-08-2024 Note RHEUMATOLOGY FOLLOW- UP VISIT Patient Name: Kaushik Rodríguez : 1970 Medical Record: [id number] PCP: Geeta Sanabria MD Referring provider: REASON FOR VISIT Polyarthralgia ASSESSMENT AND PLAN Kaushik Rodríguez is a 53 y.o. female who is being seen for evaluation of polyarthralgia. Polyarthralgia Workup overall unrevealing with negative RF/CCP, ROSLYN, DEJA, and ESR/CRP within normal limits. X-rays with some degenerative changes, but no evidence of damage from inflammatory arthritis. Synovial fluid analysis previously done with noninflammatory joint fluid (outside records 09/22/2023). MRI of the right hand with and without contrast with no joint effusion or synovitis, tenosynovitis or osseous erosions. Marrow signal within normal limits. No pathologic enhancement. Discussed with patient that at this time, I do not see a clear underlying inflammatory arthritis. Degenerative changes could be 1 source of joint pain and I do suspect that myofascial pain, possibly fibromyalgia may also be a contributor. She has been developing some patchy areas over her elbows in the winter. I have encouraged her to get this evaluated for psoriasis if this worsens. It is possible she could be in the early stages of development of inflammatory arthritis such as psoriatic arthritis, but discussed with her that given the lack of objective data at this point, I do not recommend treatment with DMARDs. I do recommend that she continue to follow-up with her PCP and with her pain medicine doctor and potentially explore other options for treatment of myofascial pain/fibromyalgia. Return to clinic in 3 to 4 months to monitor for any changes in development of inflammatory Tritus. Please do not hesitate to contact me with any questions or concerns. Jorge Penaloza DO [facility] [address] [address] O: [phone] F: [phone] The above recommendations were discussed with the patient who understands and agrees with the plan. Portions of this note were created with [employer]. Every effort was made to proofread, but sound-alike errors may occasionally occur. Please contact me for any clarification of note contents. Portions of this note were copied forward. I have updated the note to reflect today's visit, 06/08/2024 HPI/WILLA Rodríguez is a 53 y.o. female with who was referred by for evaluation of polyarthralgia. PMH: IDDM2, HTN, I reviewed the nursing intake form. Any corrections needed have been updated in the HPI. Interval history: -Continues with pain in her hands and her feet. On the days she is not working it is better. -Continues to follow with pain medicine. On tramadol. Also has Flexeril, but takes mainly at nighttime. Initial history: Patient is here for evaluation of joint pain. The pain has been present for several years, but things have gotten worse within the last year. She ended up having swelling in her left knee and went to the emergency department and had a fluid aspiration. She later saw [facility] and had another fluid aspiration. We requested results during the visit today and were able to get studies from her initial knee aspiration with WBC count of 500 as noted below. She did have a steroid injection in the left knee as well. Pain is worse in the mornings. Her hands hurt. Her fingers ache. She gets better with activity. The pain has become so significant that she has had to change jobs. 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 She can do tasks, but she feels worse later. She stiffens up after sitting down. Does not have a known history of psoriasis, but does report a scaly rash over her elbows and her left knee at times. No history of gout. Does report that her hair is thinning. Has a maternal grandmother who had rheumatoid arthritis. She has 3 healthy pregnancies with no other autoimmune disease noted in the family. Serologies/pertinent imaging and pathology Fluid studies from 09/22/23 with 500 WBC, negative crystals PHYSICAL EXAM Vitals: 06/08/24 1101 BP: (!) 155/87 BP Location: Left arm Patient Position: Sitting Pulse: 89 Weight: 102.2 kg (225 lb 6.4 oz) Constitutional: ?No acute distress. Normal appearance. Not?ill-appearing. HENT: Head normocephalic?and atraumatic. Eyes: No discharge.??? Pulmonary: Pulmonary effort is normal. No?respiratory distress. Skin: Warm?and dry. Right elbow with very mild scaling noted. Neurological: Alert. Psychiatric: ???Mood, affect, thought content normal. Musculoskeletal: She has tenderness over multiple spots on upper and lower extremities including trapezius muscles and trochanteric bursa's. Her hand joints are also diffusely tender. AUTHENTICATED BY JORGE PENALOZA ON 06/08/2024 14:09:47 [facility] 06-08-2024 History of Present illness Narrative Images from the original note were not included. RHEUMATOLOGY FOLLOW-UP VISIT Patient Name: Kaushik Rodríguez : 1970 Medical Record: [id number] PCP: Geeta Sanabria MD Referring provider: REASON FOR VISIT Polyarthralgia ASSESSMENT AND PLAN Kaushik Rodríguez is a 53 y.o. female who is being seen for evaluation of polyarthralgia. Polyarthralgia Workup overall unrevealing with negative RF/CCP, ROSLYN, DEJA, and ESR/CRP within normal limits. X-rays with some degenerative changes, but no evidence of damage from inflammatory arthritis. Synovial fluid analysis previously done with noninflammatory joint fluid (outside records 09/22/2023). MRI of the right hand with and without contrast with no joint effusion or synovitis, tenosynovitis or osseous erosions. Marrow signal within normal limits. No pathologic enhancement. Discussed with patient that at this time, I do not see a clear underlying inflammatory arthritis. Degenerative changes could be 1 source of joint pain and I do suspect that myofascial pain, possibly fibromyalgia may also be a contributor. She has been developing some patchy areas over her elbows in the winter. I have encouraged her to get this evaluated for psoriasis if this worsens. It is possible she could be in the early stages of development of inflammatory arthritis such as psoriatic arthritis, but discussed with her that given the lack of objective data at this point, I do not recommend treatment with DMARDs. I do recommend that she continue to follow-up with her PCP and with her pain medicine doctor and potentially explore other options for treatment of myofascial pain/fibromyalgia. Return to clinic in 3 to 4 months to monitor for any changes in development of inflammatory Tritus. Please do not hesitate to contact me with any questions or concerns. Jorge Penaloza DO [facility] [address] [place] [address]. [place] [address] O: [phone] F: [phone] The above recommendations were discussed with the patient who understands and agrees with the plan. Portions of this note were created with [employer]. Every effort was made to proofread, but sound-alike errors may occasionally occur. Please contact me for any clarification of note contents. Portions of this note were copied forward. I have updated the note to reflect today's visit, 06/08/2024 HPI/WILLA Kaushik Rodríguez is a 53 y.o. female with who was referred by for evaluation of polyarthralgia. PMH: IDDM2, HTN, I reviewed the nursing intake form. Any corrections needed have been updated in the HPI. Interval history: -Continues with pain in her hands and her feet. On the days she is not working it is better. -Continues to follow with pain medicine. On tramadol. Also has Flexeril, but takes mainly at nighttime. Initial history: Patient is here for evaluation of joint pain. The pain has been present for several years, but things have gotten worse within the last year. She ended up having swelling in her left knee and went to the emergency department and had a fluid aspiration. She later saw [facility] and had another fluid aspiration. We requested results during the visit today and were able to get studies from her initial knee aspiration with WBC count of 500 as noted below. She did have a steroid injection in the left knee as well. Pain is worse in the mornings. Her hands hurt. Her fingers ache. She gets better with activity. The pain has become so significant that she has had to change jobs. 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 She can do tasks, but she feels worse later. She stiffens up after sitting down. Does not have a known history of psoriasis, but does report a scaly rash over her elbows and her left knee at times. No history of gout. Does report that her hair is thinning. Has a maternal grandmother who had rheumatoid arthritis. She has 3 healthy pregnancies with no other autoimmune disease noted in the family. Serologies/pertinent imaging and pathology Fluid studies from 09/22/23 with 500 WBC, negative crystals PHYSICAL EXAM Vitals: 06/08/24 1101 BP: (!) 155/87 BP Location: Left arm Patient Position: Sitting Pulse: 89 Weight: 102.2 kg (225 lb 6.4 oz) Constitutional: ?No acute distress. Normal appearance. Not?ill-appearing. HENT: Head normocephalic?and atraumatic. Eyes: No discharge.??? Pulmonary: Pulmonary effort is normal. No?respiratory distress. Skin: Warm?and dry. Right elbow with very mild scaling noted. Neurological: Alert. Psychiatric: ???Mood, affect, thought content normal. Musculoskeletal: She has tenderness over multiple spots on upper and lower extremities including trapezius muscles and trochanteric bursa's. Her hand joints are also diffusely tender. RHEUMATOLOGY FOLLOW-UP VISIT INTAKE: Have you had any new illnesses, infections, or hospitalizations? ? []Yes [x]No If yes, please specify: Are you having any side effects from your rheumatology medications? ? []Yes ? []No ? [x]N/A If yes, please specify: Are you having morning stiffness? ? [x]Yes []No How many minutes does it last? sometimes up to 1 1/2 to 2 hrs and longer Are you having any joint swelling? ? [x]Yes []No If yes, what joints? hands, knuckles, feet, ankles and toes Global Assessment: Considering all of the ways that your disease affects you, how are you doing (0 = best ; 10 = worst)? 8.5 No show/cancellation policy provided to patient: []Yes []Patient declined [x]Patient previously received and declined additional copy documented in this encounter [facility] 05-05-[address] [facility] CONSULTATION REPORT NAME ACCOUNT SEX AGE ADMIT DISCHARGE PT MED. RECORD# NUMBER DATE DATE TYPE BRUCE, [id number] F 53 05/04/2024 05/04/2024 2 KAUSHIK Subramanian [id number] ROOM: DATE OF : 1970 DICTATING PHYSICIAN: Shai Erickson HISTORY OF PRESENT ILLNESS: The patient is seen today on May 04, 2024 at the [facility] in [place], [place]. She is tearful, and states she is struggling. The patient had an epidural injection done remotely, and has really done quite well for her leg pain. Unfortunately, the patient suffers from multiple other joint pains including hands, fingers, and knees as the most prominent. She is seeing rheumatology where she just recently had an MRI of the hand. She is due for a follow-up. Her ROSLYN and rheumatoid arthritis factors are all negative, but there may be some other etiology for these pains. The business development hopefully can ascertain this, but my gut says it is just simple osteoarthritis, which is genetically in her case quite severe. The patient was given Belbuca for better coverage than the tramadol that she is on. Of course, it was not covered by her insurance. This has been an ongoing theme in our practice, and we discussed with her that the medications that are quite helpful with less side effects and less chance for abuse are not covered. The patient currently works part-time, and has failed physical therapy and chiropractor therapy multiple times. The patient is currently on tramadol, which she adds with Advil, and we discussed the risk of NSAIDS. REVIEW OF SYSTEMS: The remainder of review of systems, intake form, pain questionnaire, nursing assessment, and OARRS report were reviewed. PHYSICAL EXAMINATION: GENERAL APPEARANCE: Reveals a pleasant 53-year-old female who is alert x3. She is tearful at first. VITAL SIGNS: She is 218 pounds and 67 inches. Pain level is a 6 out of 10. Temperature is 97, pulse 95, respirations 18, and blood pressure 140/100. Cervical range of motion is fairly full with some mild spasm noted without trigger points. She has limited cervical extension. Her thyroid is not enlarged. HEART: Heart is regular. Peripheral pulses are maintained. LUNGS: Lungs are clear in all lung beaulieu. ABDOMEN: Soft and not acute. EXTREMITIES: Examination of the lumbar spine reveals pain with lumbar extension in the lower lumbar segments L4 and 5 predominantly. Lumbar flexion is full. She has some mild swelling on the left as compared to the right knee, and multiple joint pains with range of motion. Page 1 of 2 KAUSHIK RODRÍGUEZ Insurance Consultant Report KAUSHIK RODRÍGUEZ : 1970 ASSESSMENT: 1. Osteoarthritis/pain multiple joint sites. 2. Lumbar radiculitis, still improved with epidural injection. 3. Degenerative lumbar disk disease. 4. Cervical spinal stenosis/stable. 5. Lumbar spondylosis without myelopathy. 6. Lumbosacral spondylosis. PLAN: We can trial a TENS unit for the multiple joint pains, and she can use it on her worse joint to continue working. We will change her tramadol to two pills on a t.i.d. dosing schedule, utilize Flexeril at night for pain and sleep. Hopefully, this will be covered, as well as the TENS unit for her. We will then have her follow-up with her business development and then follow-up with ourselves. If she continues to have axial pain, then the only treatment would be a medial branch block of the lumbar facets, this was recently denied stating that she did not have therapy or chiropractor care, but she already has multiple times. I do not know where the insurance companies get their information. We will await for the above, and the patient agrees to the plan. Dictated By: Shai Erickson DO 05/04/2024 14:19 JOB #: [id number] Transcribed By: am 05/04/2024 14:29 Electronically signed by: E-SIGN: SHAI ERICKSON 05/05/24 07:15 Page 2 of 2 KAUSHIK RODRÍGUEZ Insurance Consultant Report [facility] 03-09-2024 Note RHEUMATOLOGY FOLLOW- UP VISIT Patient Name: Kaushik Rodríguez : 1970 Medical Record: [id number] PCP: Geeta Sanabria MD Referring provider: REASON FOR VISIT Polyarthralgia ASSESSMENT AND PLAN Kaushik Rodríguez is a 53 y.o. female who is being seen for evaluation of polyarthralgia. Polyarthralgia Workup overall unrevealing with negative RF/CCP, ROSLYN, DEJA, and ESR/CRP within normal limits. X-rays with some degenerative changes, but no evidence of damage from inflammatory arthritis. Synovial fluid analysis previously done with noninflammatory joint fluid (outside records 09/22/2023). On exam today, patient does still have fullness present in multiple joints, particularly in the second and third PIPs of her right hand. Discussed options with patient. At this point, we will proceed with an MRI of the right hand with and without contrast to evaluate for evidence of active inflammation. Return to clinic in 3 to 4 months. Will move appointment up sooner if MRI is abnormal. Please do not hesitate to contact me with any questions or concerns. Jorge Penaloza DO [facility] [address] [place] [address]. [place] [address] O: [phone] F: [phone] The above recommendations were discussed with the patient who understands and agrees with the plan. Portions of this note were created with [employer]. Every effort was made to proofread, but sound-alike errors may occasionally occur. Please contact me for any clarification of note contents. Portions of this note were copied forward. I have updated the note to reflect today's visit, 03/09/2024 My ongoing relationship with Kaushik Rodríguez requires continued responsibility and cognitive effort of being the focal point for all services related to chronic condition(s). HPI/ROS Kaushik Rodríguez is a 53 y.o. female with who was referred by for evaluation of polyarthralgia. PMH: IDDM2, HTN, I reviewed the nursing intake form. Any corrections needed have been updated in the HPI. Interval history: Here for follow-up today. Persist with joint pain. Yesterday was a better day, but she has had a lot of bad days in between. Has a lot of pain in her low back. Knees bother her as well. Hands provider pain and stiffness as well. Initial history: Patient is here for evaluation of joint pain. The pain has been present for several years, but things have gotten worse within the last year. She ended up having swelling in her left knee and went to the emergency department and had a fluid aspiration. She later saw [facility] and had another fluid aspiration. We requested results during the visit today and were able to get studies from her initial knee aspiration with WBC count of 500 as noted below. She did have a steroid injection in the left knee as well. Pain is worse in the mornings. Her hands hurt. Her fingers ache. She gets better with activity. The pain has become so significant that she has had to change jobs. 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 She can do tasks, but she feels worse later. She stiffens up after sitting down. Does not have a known history of psoriasis, but does report a scaly rash over her elbows and her left knee at times. No history of gout. Does report that her hair is thinning. Has a maternal grandmother who had rheumatoid arthritis. She has 3 healthy pregnancies with no other autoimmune disease noted in the family. Serologies/pertinent imaging and pathology Fluid studies from 09/22/23 with 500 WBC, negative crystals PHYSICAL EXAM Vitals: 03/09/24 0901 BP: (!) 153/86 Pulse: 98 Weight: 96.8 kg (213 lb 8 oz) Constitutional: ?No acute distress. Normal appearance. Not?ill-appearing. HENT: Head normocephalic?and atraumatic. Eyes: No discharge.??? Pulmonary: Pulmonary effort is normal. No?respiratory distress. Skin: Warm?and dry. Elbows without scaly rash. Neurological: Alert. Psychiatric: ???Mood, affect, thought content normal. Musculoskeletal: Please see image below for bazan joint exam: MEDICATIONS Reviewed. AUTHENTICATED BY JORGE PENALOZA, ON 03/09/2024 10:20:32 [facility] 02-20-2024 Note RHEUMATOLOGY NEW PAT IENT VISIT Patient Name: Kaushik Rodríguez : 1970 Medical Record: [id number] PCP: Geeta Sanabria MD Referring provider: Geeta Sanabria REASON FOR REFERRAL Polyarthralgia ASSESSMENT AND PLAN Kaushik Rodríguez is a 53 y.o. female who is being seen for evaluation of polyarthralgia. Polyarthralgia With history of multiple joint pain that improves with activity with AM stiffness, inflammatory arthritis is on the differential. Patient did have any aspiration x 2 with the fluid analysis that we have available from the first aspiration showing noninflammatory fluid. She has a possible history of psoriasis with scaly patches on elbows and knee, but this has not been formally diagnosed. Plan: Complete inflammatory workup with ROSLYN, DEJA RF/CCP, ESR/CRP, uric acid, and x-rays of bilateral hands, feet, knees, and SI joints. Return to clinic in 2 to 4 weeks to review labs and x-rays. Please do not hesitate to contact me with any questions or concerns. Jorge Penaloza DO [facility] [address] [place] [address] O: [phone] F: [phone] The above recommendations were discussed with the patient who understands and agrees with the plan. Portions of this note were created with [employer]. Every effort was made to proofread, but sound-alike errors may occasionally occur. Please contact me for any clarification of note contents. HPI/ROS Kaushik Rodríguez is a 53 y.o. female with who was referred by Geeta Sanabria for evaluation of polyarthralgia. PMH: IDDM2, HTN, I reviewed the nursing intake form. Any corrections needed have been updated in the HPI. Patient is here for evaluation of joint pain. The pain has been present for several years, but things have gotten worse within the last year. She ended up having swelling in her left knee and went to the emergency department and had a fluid aspiration. She later saw [facility] and had another fluid aspiration. We requested results during the visit today and were able to get studies from her initial knee aspiration with WBC count of 500 as noted below. She did have a steroid injection in the left knee as well. Pain is worse in the mornings. Her hands hurt. Her fingers ache. She gets better with activity. The pain has become so significant that she has had to change jobs. 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 She can do tasks, but she feels worse later. She stiffens up after sitting down. Does not have a known history of psoriasis, but does report a scaly rash over her elbows and her left knee at times. No history of gout. Does report that her hair is thinning. Has a maternal grandmother who had rheumatoid arthritis. She has 3 healthy pregnancies with no other autoimmune disease noted in the family. Serologies/pertinent imaging and pathology Fluid studies from 09/22/23 with 500 WBC, negative crystals PHYSICAL EXAM Vitals: 02/20/24 1307 BP: (!) 142/85 Pulse: 90 Weight: 102.1 kg (225 lb) Constitutional: ?No acute distress. Normal appearance. Not?ill-appearing. HENT: Head normocephalic?and atraumatic. Eyes: No discharge.??? Pulmonary: Pulmonary effort is normal. No?respiratory distress. Skin: Warm?and dry. No rash over exposed surfaces. Neurological: Alert. Psychiatric: ???Mood, affect, thought content normal. Musculoskeletal: No effusions noted in knees. Please see image below for bazan joint exam: PAST MEDICAL HISTORY No past medical history on file. MEDICATIONS Reviewed. AUTHENTICATED BY JORGE PENALOZA ON 02/22/2024 14:48:42 [facility] 09-27-2023 Note . MICRO - Microbiology PROCEDURE: Culture Body Fluid with Gram Stain [*1] SOURCE: Synovial Fluid BODY SITE: Knee L COLLECTED DATE/TIME: 09/22/2023 19:10 EST RECEIVED DATE/TIME: 09/22/2023 19:10 EST START DATE/TIME: 09/22/2023 19:11 EST FREE TEXT SOURCE: FINAL REPORTS Final Report [] Verified Date/Time/Personnel: 09/27/2023 19:59 EST Culture: No Growth at 5 days. PRELIMINARY REPORTS Preliminary Report [] Verified Date/Time/Personnel: 09/22/2023 19:59 EST Culture has been received in lab and is no growth to date. Routine cultures are held for 5 days. STAINS GS [] Verified Date/Time/Personnel: 09/22/2023 22:53 EST Unsedimented No organisms seen. Performing Locations *1: This test was performed at: [facility], [address] , [place], [address]- , [facility] ([place]) Evaluation note Diagnosis Polyarthralgia- Primary Pain in joint, multiple sites [facility] Diagnosis Polyarthralgia- Primary Pain in joint, multiple sites Fibromyalgia Mylagia and myositis, unspecified Trigger middle finger of right hand Trigger finger (acquired) [facility] Polyarthralgia Pain in joint, multiple sites documented in this encounter [facility] for visit Narrative* Diagnostic Procedure Only (Routine) - Closed Specialty Diagnoses / Procedures Referred By Contac t Referred To Contact XR IMAGING Diagnoses Polyarthralgia Procedures XR HAND GENERAL 3V PA/LAT/OBL BILATERAL RADEX HAND MINIMUM 3 VIEWS Charlie Bauman PA-C [address] [place] [address] Phone: tel: fax: [place] [phone] Referral ID Status Reason Start Date Expiration Date V isits Requested Visits Authorized [id number] Closed Auto-Generate d Referral 02/10/2025 03/12/2026 [address] [facility] Summary Purpose Family History No Family History Records FoundNo Family History Records FoundNo Family History Records FoundNo Family History Records FoundNo Family History Records FoundNo Family History Records FoundNo Family History Records FoundNo Family History Records FoundNo Family History Records Found Advance Directives No Advanced Directives Records FoundNo Advanced Directives Records FoundNo Advanced Directives Records FoundNo Advanced Directives Records FoundNo Advanced Directives Records FoundNo Advanced Directives Records FoundNo Advanced Directives Records FoundNo Advanced Directives Records FoundNo Advanced Directives Records Found Additional Source Comments INFORMATION SOURCE (unrecogn ized section and content) DATE CREATED AUTHOR 01/17/[address] [facility] DATE CREATED AUTHOR AUTHOR'S ORGANIZ ATION 10/18/2021 [facility] DATE CREATED AUTHOR AUTHOR'S ORGANIZ ATION 09/10/2023 [facility] DATE CREATED AUTHOR AUTHOR'S ORGANIZ ATION 09/29/2023 [facility] ([place]) DATE CREATED AUTHOR AUTHOR'S ORGANIZ ATION 05/02/2024 [facility] DATE CREATED AUTHOR AUTHOR'S ORGANIZ ATION 06/10/2024 [facility] DATE CREATED AUTHOR AUTHOR'S ORGANIZ ATION 12/02/2024 [facility] DATE CREATED AUTHOR AUTHOR'S ORGANIZ ATION 02/16/2025 [facility] DATE CREATED AUTHOR AUTHOR'S ORGANIZ ATION 02/18/2025 [facility] Care Teams (unrecognized sec tion and content) Fashion Journalist Relationship Specialty [place] [address] [place] [address] [address] [place] [id number] PCP - General 02/20/24 Fashion Journalist Relationship Specialty [place] [address] [place] [address] [address] [place] [address] PCP - General Internal Medicine 02/10/25 Fashion Journalist Relationship Specialty Start [place] [address] [place] [address] [address] [place] [address] PCP - General Internal Medicine 02/10/25 Fashion Journalist Relationship Specialty Start [place] [address] [place] [address] [address] [place] [address] PCP - General Internal Medicine 02/10/25 Source Comments (unrecognize d section and content) In the event this informatio n is protected by the Federal Confidentiality of Alcohol and Drug Abuse Patient Records regulations: The Federal rules restrict any use of the information to criminally investigate or prosecute any alcohol or drug abuse patient.[facility] the event this information is protected by the Federal Confidentiality of Alcohol and Drug Abuse Patient Records regulations: The Federal rules restrict any use of the information to criminally investigate or prosecute any alcohol or drug abuse patient.[facility] the event this information is protected by the Federal Confidentiality of Alcohol and Drug Abuse Patient Records regulations: The Federal rules restrict any use of the information to criminally investigate or prosecute any alcohol or drug abuse patient.[facility] Reason for Visit (unrecogniz ed section and content) Reason Comments New Patient FOR RECORDS PERTAINING TO PATIENTS WHO ARE OR HAVE BEEN ENROLLED IN A CHEMICAL DEPENDENCY/SUBSTANCEABUSE PROGRAM, SOME INFORMATION MAY BE OMITTED. This clinical summary was aggregated from multiple sources. Caution should be exercised in using it in the provision of clinical care. This summary normalizes information from multiple sources, and as a consequence, information in this document may materially change the coding, format and clinical context of patient data. In addition, data may be omitted in some cases. CLINICAL DECISIONS SHOULD BE BASED ON THE PRIMARY CLINICAL RECORDS. [facility]. provides no warranty or guarantee of the accuracy or completeness of information in this document.
[2025-02-27] MEDS: 0.9% Normal Saline (1000mL) 1,000 ML 999 ML IV (18:27)
[2025-02-27 18:35] LABS: AST(SGOT) 20 U/L (<=31); Alanine Aminotransfer ALT/SGPT 19 U/L (<=34); Albumin, Serum 4.3 g/dL (3.5-5.0); Alkaline Phosphatase 133 U/L (35-104); Anion Gap 13 (5-15); BUN 18 mg/dL (4-19); BUN/Creat Ratio 20.7 RATIO (10-20); Calcium,Total 9.2 mg/dL (7.6-11.0); Carbon Dioxide 23.1 mmol/L (21.0-32.0); Chloride 102 mmol/L (98-108); Estimated Creatinine Clearance 89.14 ml/min (50-250); Globulin 2.9 g/dL (2.2-4.2); Glucose 144 mg/dL (70-99); Lipase 31 U/L (13-75); Potassium 3.5 mmol/L (3.3-5.1)
[2025-02-27 18:40] VITALS: BP 119/66; PULSE 93; RESP 16; TEMP 36.9; O2SAT 99
[2025-02-27 18:50] LABS: Color, Urine Yellow (Yellow); Glucose, Dipstick Normal (Normal); Ketone-Dipstick Negative (Negative); Leukocyte Esterase-Dipstick 25 /ul (Negative); Nitrite-Dipstick Negative (Negative); Occult Blood-Urine Negative /ul (Negative); Protein-Dipstick 15 mg/dl (Negative); Specific Gravity, Urine 1.015 (1.002-1.030); Urine Bilirubin Dipstick Negative (Negative)
[2025-02-27 19:21] LABS: Red Blood Cells-Urine 0-5 SEEN /hpf (0-5); Squamous Epithelial Cells - UA 0-5 SEEN /hpf (5-10)
--- NOTE | 2025-02-27 19:33 | EKG12_ITS ---
Test Reason : N/V Blood Pressure : */* mmHG Vent. Rate : 91 BPM Atrial Rate : 91 BPM P-R Int : 188 ms QRS Dur : 84 ms QT Int : 376 ms P-R-T Axes : 29 -17 0 degrees QTcB Int : 462 ms Normal sinus rhythm Normal ECG Confirmed by MELYSSA VALLES MD ([id number]), scientific publications editor YAMILEX BANERJEE ([id number]) on 02/28/2025 9:49:27 AM Referred By: Confirmed By: MELYSSA VALLES MD
[2025-02-27 20:24] VITALS: BP 139/79; PULSE 68; RESP 18; TEMP 36.8; O2SAT 97
== END 2025-02-27 20:29 | disposition home or self-care (01) ==
PROVIDERS: Physician Assistant; Emergency Provider Emergency Medicine; PCP Student in an Organized Health Care Education/Training Program; Visit Provider Emergency Medicine
DX: R10.11 Right upper quadrant pain (principal); E11.9 Type 2 diabetes mellitus without complications; R11.2 Nausea with vomiting, unspecified; Z90.710 Acquired absence of both cervix and uterus; I10 Essential (primary) hypertension; Z83.3 Family history of diabetes mellitus; R19.7 Diarrhea, unspecified; R10.816 Epigastric abdominal tenderness; Z87.442 Personal history of urinary calculi; Z90.49 Acquired absence of other specified parts of digestive tract
CPT/HCPCS: 74177; 80053; 81001; 83690; 85025; 93005; 96361; 96374; 96375; 99283; Q9967; A4216; J2405